=== PATIENT | male | born 1950 | race Caucasian/White ===

== ENCOUNTER 2017-08-02 03:00 | Inpatient (IN) | payer OTHER ==
[2017-08-02] MEDS ORDERED: Sodium Chloride 0.9% 10 ML Syringe FLUSH PRN ×2 (03:07→09:21)
[2017-08-02] MEDS ORDERED: Sodium Chloride 0.9% 1,000 ML IV SCH (03:15)
--- NOTE | 2017-08-02 03:23 | EDM.PDOC ---
ED HPI GENERAL MEDICAL PROBLEM - General Stated Complaint: MEDICAL VIA TRI Time Seen by Provider: 08/02/17 03:04 Source of Information: Reports: EMS, Family, RN Notes Reviewed History Limitations: Reports: Altered Mental Status, Respiratory Distress - History of Present Illness INITIAL COMMENTS - FREE TEXT/NARRATIVE: 66-year-old gentleman presents via EMS services today for increased difficulty breathing, he has a known history of chronic obstructive pulmonary disease as well as recent right hip surgery of which she uses Percocet for pain control, this gentleman is obtunded he does have brief moments of clear speech and conversation then becomes more obtunded he does complain of difficulty breathing he was given 2 mg of Narcan on seen at which time after the Narcan was provided was able to converse with EMS prior to arrival. Therefore no review of systems was obtained and the majority of this history was taken from chart review he does go [facility] will try and obtain records from there - Related Data Allergies Allergy/AdvReac Type Severity Reaction Status Date / Time morphine Allergy Unknown Unknown Verified 09/17/13 13:24 Sulfa (Sulfonamide Allergy Unknown Unknown Verified 09/17/13 13:23 Antibiotics) cholestyramine Allergy Cannot Verified 08/02/17 05:46 Remember insulin aspart [From Novolog] Allergy Cannot Verified 08/02/17 05:46 Remember niacin Allergy Cannot Verified 08/02/17 05:46 Remember rosuvastatin [From Crestor] Allergy Cannot Verified 08/02/17 05:46 Remember Home Meds: Home Meds Albuterol [IJD: Albuterol HFA] 1 puff .XX QID PRN 08/02/17 [History] Aspirin [Ecotrin] 325 mg PO DAILY 08/02/17 [History] Cholecalciferol (Vitamin D3) [Vitamin D3] 1,000 unit PO DAILY 08/02/17 [History] Cyanocobalamin (Vitamin B12) [Vitamin B12] 1,000 mcg PO DAILY 08/02/17 [History] Cyclobenzaprine HCl 5 - 10 mg PO TID PRN 08/02/17 [History] Gabapentin [Neurontin] 300 mg PO DAILY 08/02/17 [History] Gabapentin [Neurontin] 600 mg PO DAILY 08/02/17 [History] Gabapentin [Neurontin] 900 mg PO BEDTIME 08/02/17 [History] Insulin Glarg,Human.Rec.Analog [LantUS Solostar] 62 unit SUBCUT BID 08/02/17 [ History] Isosorbide Mononitrate [Imdur] 60 mg PO BID 08/02/17 [History] Levothyroxine 150 mcg PO ACBREAKFAST 08/02/17 [History] Loratadine 10 mg PO DAILY PRN 08/02/17 [History] Magnesium Oxide 250 mg PO DAILY 08/02/17 [History] Meclizine [Antivert] 25 mg PO TID PRN 08/02/17 [History] Metoprolol Succinate [Toprol XL] 100 mg PO BEDTIME 08/02/17 [History] Nitroglycerin [Nitrostat] 0.4 mg SL ASDIRECTED PRN 08/02/17 [History] Ranolazine [Ranexa] 1,000 mg PO BID 08/02/17 [History] Sennosides/Docusate Sodium [Senna-Docusate Sodium] 1 - 2 each PO BID 08/02/17 [ History] Sertraline HCl [Zoloft] 200 mg PO BID 08/02/17 [History] Vitamin B Complex [Ultra B-100 Complex] 1 each PO DAILY 08/02/17 [History] amLODIPine Besylate [Amlodipine Besylate] 5 mg PO BEDTIME 08/02/17 [History] atorvaSTATin Calcium [Atorvastatin Calcium] 40 mg PO BEDTIME 08/02/17 [History] metFORMIN [Glucophage] 1,000 mg PO BIDMEALS 08/02/17 [History] oxyCODONE 1 - 2 tab PO Q3H PRN 08/02/17 [History] traZODone HCl [Trazodone HCl] 50 mg PO BEDTIME 08/02/17 [History] Past Medical History Respiratory History: Reports: COPD Endocrine/Metabolic History: Reports: Diabetes, Type II ED ROS GENERAL - Review of Systems Review Of Systems: Unable To Obtain ED EXAM, GENERAL - Physical Exam Exam: See Below Free Text/Narrative:: General: Obtunded male GCS will vary between 6 and 13, alert HEENT: head is atraumatic normocephalic, eyes pupils equal round minimally reactive at 2 mm, sclera clear no conjunctivitis appreciated. Ears blocked by cerumen bilaterally. Nose no septal deviation, nares are clear, no blood present. Mouth mucosa is dry and pink no erythema or exudate noted in soft palate, tongue is midline uvula is midline, dentition is intact. Neck: Supple no thyromegaly no tracheal deviation. Nodes: Cervical nodes subclavicular nodes nontender no palpable lymphadenopathy noted. Lungs: Breath sounds are distant on appreciate any adventitious noises CV: Bradycardic rate and rhythm S1 and S2 appreciated no murmurs rubs or gallops noted. Abdomen: Soft, distended with generalized tenderness to palpation, no palpable masses or organomegaly appreciated, no distention no guarding bowel sounds are present,. Neuro: Cranial nerves II through XII grossly intact Skin: Warm and dry, intact Extremities: +1 edema bilaterally, pedal pulse is +2. Course - Vital Signs Last Recorded V/S: Last Vital Signs Temp 96.8 F 08/02/17 05:18 Pulse 56 L 08/02/17 05:18 Resp 26 H 08/02/17 05:18 BP 136/73 08/02/17 05:18 Pulse Ox 96 08/02/17 05:18 - Orders/Labs/Meds Orders: Active Orders 24 hr Category Date Time Status Cardiac Monitoring [RC] .As Directed Care 08/02/17 03:07 Active EKG Documentation Completion [RC] ASDIRECTED Care 08/02/17 03:09 Active Baez Catheter Insertion [Insert Urinary Catheter] [OM. Care 08/02/17 03:45 Ordered PC] Q24H Peripheral IV Care [RC] . DIRECTED Care 08/02/17 03:08 Active RT BiPAP/CPAP [RC] ASDIRECTED Care 08/02/17 03:10 Active Urinary Catheter Assessment [RC] ASDIRECTED Care 08/02/17 03:39 Active Ang Chest [CT] Stat Exams 08/02/17 05:39 Taken Chest 1V Frontal [CR] Stat Exams 08/02/17 03:09 Taken Head wo Cont [CT] Stat Exams 08/02/17 03:47 Taken Sodium Chloride 0.9% [Normal Saline] 1,000 ml Med 08/02/17 03:15 Active IV ASDIRECTED Sodium Chloride 0.9% [Saline Flush] Med 08/02/17 03:07 Active 10 ml FLUSH ASDIRECTED PRN Peripheral IV Insertion Adult [OM.PC] Stat Oth 08/02/17 03:07 Ordered EKG 12 Lead [EK] Stat Ther 08/02/17 03:09 Ordered Medication Orders Sodium Chloride (Normal Saline) 1,000 mls @ 125 mls/hr IV ASDIRECTED JAIDA Last Admin: 08/02/17 04:19 Dose: 125 mls/hr Sodium Chloride (Saline Flush) 10 ml FLUSH ASDIRECTED PRN PRN Reason: Keep Vein Open Last Admin: 08/02/17 05:24 Dose: 10 ml Labs: Laboratory Tests 08/02/17 08/02/17 08/02/17 Range/Units 03:20 03:20 03:20 WBC 11.1 H (4.5-11.0) K/uL RBC 3.53 L (4.30-5.90) M/uL Hgb 11.0 L (12.0-15.0) g/dL Hct 34.3 L (40.0-54.0) % MCV 97 (80-98) fL MCH 31 (27-31) pg MCHC 32 (32-36) % Plt Count 157 (150-400) K/uL Neut % (Auto) 68 H (36-66) % Lymph % (Auto) 20 L (24-44) % Glenn % (Auto) 10 H (2-6) % Eos % (Auto) 2 (2-4) % Baso % (Auto) 0 (0-1) % D-Dimer, Quantitative (0.0-400.0) ng/mL Puncture Site ABG pH (7.350-7.450) ABG pCO2 (35.0-42.0) mmHg ABG pO2 (75.0-100.0) mmHg ABG HCO3 (22.0-26.0) mmol/L ABG Total CO2 (23.0-27.0) mmol/L ABG O2 Saturation (95.0-98.0) % ABG O2 Content (15.0-23.0) %vol ABG Base Excess mm/L ABG Hemoglobin (13.5-18.0) g/dL ABG Oxyhemoglobin % ABG Carboxyhemoglobin (0.0-1.6) % ABG Methemoglobin % Vernon Test O2 Delivery Device Oxygen Flow Rate L Sodium 141 (140-148) mmol/L Potassium 4.1 (3.6-5.2) mmol/L Chloride 107 (100-108) mmol/L Carbon Dioxide 25 (21-32) mmol/L Anion Gap 9.2 (5.0-14.0) mmol/L BUN 21 H (7-18) mg/dL Creatinine 0.9 (0.8-1.3) mg/dL Est Cr Clr Drug Dosing 87.42 mL/min Estimated GFR (MDRD) > 60 (>60) Glucose 114 H (74-106) mg/dL Lactic Acid 1.5 (0.4-2.0) mmol/L Calcium 8.5 (8.5-10.1) mg/dL Total Bilirubin 0.6 (0.2-1.0) mg/dL AST 17 (15-37) U/L ALT 21 (12-78) U/L Alkaline Phosphatase 62 (46-116) U/L Creatine Kinase (39-308) U/L Troponin I 0.047 (0.000-0.056) ng/mL NT-Pro-B Natriuret Pep 1103 H (5-125) pg/mL Total Protein 6.5 (6.4-8.2) g/dL Albumin 3.2 L (3.4-5.0) g/dL Globulin 3.3 (2.3-3.5) g/dL Albumin/Globulin Ratio 1.0 L (1.2-2.2) Lipase 75 (73-393) U/L TSH, Ultra Sensitive (0.358-3.740) uIU/mL Urine Color Urine Appearance Urine pH (4.5-8.0) Ur Specific [place] (1.008-1.030) Urine Protein (NEGATIVE) mg/dL Urine Glucose (UA) (NEGATIVE) mg/dL Urine Ketones (NEGATIVE) mg/dL Urine Occult Blood (NEGATIVE) Urine Nitrite (NEGAITVE) Urine Bilirubin (NEGATIVE) Urine Urobilinogen (NORMAL) mg/dL Ur Leukocyte Esterase (NEGATIVE) Urine RBC (0-5) Urine WBC (0-5) Ur Epithelial Cells Amorphous Sediment Urine Bacteria Urine Mucus Salicylates (2.0-20.0) mg/dL Urine Opiates Screen (NEGATIVE) Ur Oxycodone Screen (NEGATIVE) Urine Methadone Screen (NEGATIVE) Ur Propoxyphene Screen (NEGATIVE) Acetaminophen (10.0-30.0) ug/mL Ur Barbiturates Screen (NEGATIVE) Ur Tricyclics Screen (NEGATIVE) Ur Phencyclidine Scrn (NEGATIVE) Ur Amphetamine Screen (NEGATIVE) U Methamphetamines Scrn (NEGATIVE) Urine MDMA Screen (NEGATIVE) U Benzodiazepines Scrn (NEGATIVE) U Cocaine Metab Screen (NEGATIVE) Theophylline < 2.0 L (10-20.0) ug/mL U Marijuana (THC) Screen (NEGATIVE) Ethyl Alcohol mg/dL 08/02/17 08/02/17 08/02/17 Range/Units 03:20 03:20 03:20 WBC (4.5-11.0) K/uL RBC (4.30-5.90) M/uL Hgb (12.0-15.0) g/dL Hct (40.0-54.0) % MCV (80-98) fL MCH (27-31) pg MCHC (32-36) % Plt Count (150-400) K/uL Neut % (Auto) (36-66) % Lymph % (Auto) (24-44) % Glenn % (Auto) (2-6) % Eos % (Auto) (2-4) % Baso % (Auto) (0-1) % D-Dimer, Quantitative (0.0-400.0) ng/mL Puncture Site ABG pH (7.350-7.450) ABG pCO2 (35.0-42.0) mmHg ABG pO2 (75.0-100.0) mmHg ABG HCO3 (22.0-26.0) mmol/L ABG Total CO2 (23.0-27.0) mmol/L ABG O2 Saturation (95.0-98.0) % ABG O2 Content (15.0-23.0) %vol ABG Base Excess mm/L ABG Hemoglobin (13.5-18.0) g/dL ABG Oxyhemoglobin % ABG Carboxyhemoglobin (0.0-1.6) % ABG Methemoglobin % Vernon Test O2 Delivery Device Oxygen Flow Rate L Sodium (140-148) mmol/L Potassium (3.6-5.2) mmol/L Chloride (100-108) mmol/L Carbon Dioxide (21-32) mmol/L Anion Gap (5.0-14.0) mmol/L BUN (7-18) mg/dL Creatinine (0.8-1.3) mg/dL Est Cr Clr Drug Dosing mL/min Estimated GFR (MDRD) (>60) Glucose (74-106) mg/dL Lactic Acid (0.4-2.0) mmol/L Calcium (8.5-10.1) mg/dL Total Bilirubin (0.2-1.0) mg/dL AST (15-37) U/L ALT (12-78) U/L Alkaline Phosphatase (46-116) U/L Creatine Kinase (39-308) U/L Troponin I (0.000-0.056) ng/mL NT-Pro-B Natriuret Pep (5-125) pg/mL Total Protein (6.4-8.2) g/dL Albumin (3.4-5.0) g/dL Globulin (2.3-3.5) g/dL Albumin/Globulin Ratio (1.2-2.2) Lipase (73-393) U/L TSH, Ultra Sensitive (0.358-3.740) uIU/mL Urine Color Urine Appearance Urine pH (4.5-8.0) Ur Specific [place] (1.008-1.030) Urine Protein (NEGATIVE) mg/dL Urine Glucose (UA) (NEGATIVE) mg/dL Urine Ketones (NEGATIVE) mg/dL Urine Occult Blood (NEGATIVE) Urine Nitrite (NEGAITVE) Urine Bilirubin (NEGATIVE) Urine Urobilinogen (NORMAL) mg/dL Ur Leukocyte Esterase (NEGATIVE) Urine RBC (0-5) Urine WBC (0-5) Ur Epithelial Cells Amorphous Sediment Urine Bacteria Urine Mucus Salicylates 2.9 (2.0-20.0) mg/dL Urine Opiates Screen (NEGATIVE) Ur Oxycodone Screen (NEGATIVE) Urine Methadone Screen (NEGATIVE) Ur Propoxyphene Screen (NEGATIVE) Acetaminophen 0.0 L (10.0-30.0) ug/mL Ur Barbiturates Screen (NEGATIVE) Ur Tricyclics Screen (NEGATIVE) Ur Phencyclidine Scrn (NEGATIVE) Ur Amphetamine Screen (NEGATIVE) U Methamphetamines Scrn (NEGATIVE) Urine MDMA Screen (NEGATIVE) U Benzodiazepines Scrn (NEGATIVE) U Cocaine Metab Screen (NEGATIVE) Theophylline (10-20.0) ug/mL U Marijuana (THC) Screen (NEGATIVE) Ethyl Alcohol < 3 mg/dL 08/02/17 08/02/17 08/02/17 Range/Units 03:20 03:20 03:23 WBC (4.5-11.0) K/uL RBC (4.30-5.90) M/uL Hgb (12.0-15.0) g/dL Hct (40.0-54.0) % MCV (80-98) fL MCH (27-31) pg MCHC (32-36) % Plt Count (150-400) K/uL Neut % (Auto) (36-66) % Lymph % (Auto) (24-44) % Glenn % (Auto) (2-6) % Eos % (Auto) (2-4) % Baso % (Auto) (0-1) % D-Dimer, Quantitative (0.0-400.0) ng/mL Puncture Site R radial ABG pH 7.392 (7.350-7.450) ABG pCO2 40.8 (35.0-42.0) mmHg ABG pO2 54.4 L (75.0-100.0) mmHg ABG HCO3 24.3 (22.0-26.0) mmol/L ABG Total CO2 22.3 L (23.0-27.0) mmol/L ABG O2 Saturation 87.3 L (95.0-98.0) % ABG O2 Content 13.3 L (15.0-23.0) %vol ABG Base Excess -0.1 mm/L ABG Hemoglobin 11.2 L (13.5-18.0) g/dL ABG Oxyhemoglobin 84.2 % ABG Carboxyhemoglobin 3.0 H (0.0-1.6) % ABG Methemoglobin 0.6 % Vernon Test Ok O2 Delivery Device Nasal cannula Oxygen Flow Rate 2 L Sodium (140-148) mmol/L Potassium (3.6-5.2) mmol/L Chloride (100-108) mmol/L Carbon Dioxide (21-32) mmol/L Anion Gap (5.0-14.0) mmol/L BUN (7-18) mg/dL Creatinine (0.8-1.3) mg/dL Est Cr Clr Drug Dosing mL/min Estimated GFR (MDRD) (>60) Glucose (74-106) mg/dL Lactic Acid (0.4-2.0) mmol/L Calcium (8.5-10.1) mg/dL Total Bilirubin (0.2-1.0) mg/dL AST (15-37) U/L ALT (12-78) U/L Alkaline Phosphatase (46-116) U/L Creatine Kinase 52 (39-308) U/L Troponin I (0.000-0.056) ng/mL NT-Pro-B Natriuret Pep (5-125) pg/mL Total Protein (6.4-8.2) g/dL Albumin (3.4-5.0) g/dL Globulin (2.3-3.5) g/dL Albumin/Globulin Ratio (1.2-2.2) Lipase (73-393) U/L TSH, Ultra Sensitive 4.739 H (0.358-3.740) uIU/mL Urine Color Urine Appearance Urine pH (4.5-8.0) Ur Specific [place] (1.008-1.030) Urine Protein (NEGATIVE) mg/dL Urine Glucose (UA) (NEGATIVE) mg/dL Urine Ketones (NEGATIVE) mg/dL Urine Occult Blood (NEGATIVE) Urine Nitrite (NEGAITVE) Urine Bilirubin (NEGATIVE) Urine Urobilinogen (NORMAL) mg/dL Ur Leukocyte Esterase (NEGATIVE) Urine RBC (0-5) Urine WBC (0-5) Ur Epithelial Cells Amorphous Sediment Urine Bacteria Urine Mucus Salicylates (2.0-20.0) mg/dL Urine Opiates Screen (NEGATIVE) Ur Oxycodone Screen (NEGATIVE) Urine Methadone Screen (NEGATIVE) Ur Propoxyphene Screen (NEGATIVE) Acetaminophen (10.0-30.0) ug/mL Ur Barbiturates Screen (NEGATIVE) Ur Tricyclics Screen (NEGATIVE) Ur Phencyclidine Scrn (NEGATIVE) Ur Amphetamine Screen (NEGATIVE) U Methamphetamines Scrn (NEGATIVE) Urine MDMA Screen (NEGATIVE) U Benzodiazepines Scrn (NEGATIVE) U Cocaine Metab Screen (NEGATIVE) Theophylline (10-20.0) ug/mL U Marijuana (THC) Screen (NEGATIVE) Ethyl Alcohol mg/dL 08/02/17 08/02/17 08/02/17 Range/Units 03:48 03:49 05:00 WBC (4.5-11.0) K/uL RBC (4.30-5.90) M/uL Hgb (12.0-15.0) g/dL Hct (40.0-54.0) % MCV (80-98) fL MCH (27-31) pg MCHC (32-36) % Plt Count (150-400) K/uL Neut % (Auto) (36-66) % Lymph % (Auto) (24-44) % Glenn % (Auto) (2-6) % Eos % (Auto) (2-4) % Baso % (Auto) (0-1) % D-Dimer, Quantitative (0.0-400.0) ng/mL Puncture Site R radial ABG pH 7.348 L (7.350-7.450) ABG pCO2 44.5 H (35.0-42.0) mmHg ABG pO2 72.0 L (75.0-100.0) mmHg ABG HCO3 23.8 (22.0-26.0) mmol/L ABG Total CO2 22.0 L (23.0-27.0) mmol/L ABG O2 Saturation 93.7 L (95.0-98.0) % ABG O2 Content 14.3 L (15.0-23.0) %vol ABG Base Excess -1.4 mm/L ABG Hemoglobin 11.2 L (13.5-18.0) g/dL ABG Oxyhemoglobin 90.8 % ABG Carboxyhemoglobin 2.4 H (0.0-1.6) % ABG Methemoglobin 0.7 % Vernon Test Ok O2 Delivery Device Bipap Oxygen Flow Rate L Sodium (140-148) mmol/L Potassium (3.6-5.2) mmol/L Chloride (100-108) mmol/L Carbon Dioxide (21-32) mmol/L Anion Gap (5.0-14.0) mmol/L BUN (7-18) mg/dL Creatinine (0.8-1.3) mg/dL Est Cr Clr Drug Dosing mL/min Estimated GFR (MDRD) (>60) Glucose (74-106) mg/dL Lactic Acid (0.4-2.0) mmol/L Calcium (8.5-10.1) mg/dL Total Bilirubin (0.2-1.0) mg/dL AST (15-37) U/L ALT (12-78) U/L Alkaline Phosphatase (46-116) U/L Creatine Kinase (39-308) U/L Troponin I (0.000-0.056) ng/mL NT-Pro-B Natriuret Pep (5-125) pg/mL Total Protein (6.4-8.2) g/dL Albumin (3.4-5.0) g/dL Globulin (2.3-3.5) g/dL Albumin/Globulin Ratio (1.2-2.2) Lipase (73-393) U/L TSH, Ultra Sensitive (0.358-3.740) uIU/mL Urine Color Yellow Urine Appearance Clear Urine pH 5.0 (4.5-8.0) Ur Specific [place] 1.025 (1.008-1.030) Urine Protein Negative (NEGATIVE) mg/dL Urine Glucose (UA) 250 H (NEGATIVE) mg/dL Urine Ketones Negative (NEGATIVE) mg/dL Urine Occult Blood Negative (NEGATIVE) Urine Nitrite Negative (NEGAITVE) Urine Bilirubin Negative (NEGATIVE) Urine Urobilinogen Normal (NORMAL) mg/dL Ur Leukocyte Esterase Negative (NEGATIVE) Urine RBC 0-5 (0-5) Urine WBC 0-5 (0-5) Ur Epithelial Cells Rare Amorphous Sediment Few Urine Bacteria Few Urine Mucus Not seen Salicylates (2.0-20.0) mg/dL Urine Opiates Screen Negative (NEGATIVE) Ur Oxycodone Screen Positive H (NEGATIVE) Urine Methadone Screen Negative (NEGATIVE) Ur Propoxyphene Screen Negative (NEGATIVE) Acetaminophen (10.0-30.0) ug/mL Ur Barbiturates Screen Negative (NEGATIVE) Ur Tricyclics Screen Negative (NEGATIVE) Ur Phencyclidine Scrn Negative (NEGATIVE) Ur Amphetamine Screen Negative (NEGATIVE) U Methamphetamines Scrn Negative (NEGATIVE) Urine MDMA Screen Negative (NEGATIVE) U Benzodiazepines Scrn Negative (NEGATIVE) U Cocaine Metab Screen Negative (NEGATIVE) Theophylline (10-20.0) ug/mL U Marijuana (THC) Screen Negative (NEGATIVE) Ethyl Alcohol mg/dL 08/02/17 Range/Units 05:05 WBC (4.5-11.0) K/uL RBC (4.30-5.90) M/uL Hgb (12.0-15.0) g/dL Hct (40.0-54.0) % MCV (80-98) fL MCH (27-31) pg MCHC (32-36) % Plt Count (150-400) K/uL Neut % (Auto) (36-66) % Lymph % (Auto) (24-44) % Glenn % (Auto) (2-6) % Eos % (Auto) (2-4) % Baso % (Auto) (0-1) % D-Dimer, Quantitative 3540 H (0.0-400.0) ng/mL Puncture Site ABG pH (7.350-7.450) ABG pCO2 (35.0-42.0) mmHg ABG pO2 (75.0-100.0) mmHg ABG HCO3 (22.0-26.0) mmol/L ABG Total CO2 (23.0-27.0) mmol/L ABG O2 Saturation (95.0-98.0) % ABG O2 Content (15.0-23.0) %vol ABG Base Excess mm/L ABG Hemoglobin (13.5-18.0) g/dL ABG Oxyhemoglobin % ABG Carboxyhemoglobin (0.0-1.6) % ABG Methemoglobin % Vernon Test O2 Delivery Device Oxygen Flow Rate L Sodium (140-148) mmol/L Potassium (3.6-5.2) mmol/L Chloride (100-108) mmol/L Carbon Dioxide (21-32) mmol/L Anion Gap (5.0-14.0) mmol/L BUN (7-18) mg/dL Creatinine (0.8-1.3) mg/dL Est Cr Clr Drug Dosing mL/min Estimated GFR (MDRD) (>60) Glucose (74-106) mg/dL Lactic Acid (0.4-2.0) mmol/L Calcium (8.5-10.1) mg/dL Total Bilirubin (0.2-1.0) mg/dL AST (15-37) U/L ALT (12-78) U/L Alkaline Phosphatase (46-116) U/L Creatine Kinase (39-308) U/L Troponin I (0.000-0.056) ng/mL NT-Pro-B Natriuret Pep (5-125) pg/mL Total Protein (6.4-8.2) g/dL Albumin (3.4-5.0) g/dL Globulin (2.3-3.5) g/dL Albumin/Globulin Ratio (1.2-2.2) Lipase (73-393) U/L TSH, Ultra Sensitive (0.358-3.740) uIU/mL Urine Color Urine Appearance Urine pH (4.5-8.0) Ur Specific [place] (1.008-1.030) Urine Protein (NEGATIVE) mg/dL Urine Glucose (UA) (NEGATIVE) mg/dL Urine Ketones (NEGATIVE) mg/dL Urine Occult Blood (NEGATIVE) Urine Nitrite (NEGAITVE) Urine Bilirubin (NEGATIVE) Urine Urobilinogen (NORMAL) mg/dL Ur Leukocyte Esterase (NEGATIVE) Urine RBC (0-5) Urine WBC (0-5) Ur Epithelial Cells Amorphous Sediment Urine Bacteria Urine Mucus Salicylates (2.0-20.0) mg/dL Urine Opiates Screen (NEGATIVE) Ur Oxycodone Screen (NEGATIVE) Urine Methadone Screen (NEGATIVE) Ur Propoxyphene Screen (NEGATIVE) Acetaminophen (10.0-30.0) ug/mL Ur Barbiturates Screen (NEGATIVE) Ur Tricyclics Screen (NEGATIVE) Ur Phencyclidine Scrn (NEGATIVE) Ur Amphetamine Screen (NEGATIVE) U Methamphetamines Scrn (NEGATIVE) Urine MDMA Screen (NEGATIVE) U Benzodiazepines Scrn (NEGATIVE) U Cocaine Metab Screen (NEGATIVE) Theophylline (10-20.0) ug/mL U Marijuana (THC) Screen (NEGATIVE) Ethyl Alcohol mg/dL Meds: Medications Generic Name Dose Route Start Last Admin Trade Name Freq PRN Reason Stop Dose Admin Sodium Chloride 1,000 mls @ 125 mls/hr 08/02/17 03:15 08/02/17 04:19 Normal Saline IV 125 mls/hr ASDIRECTED JAIDA Administration Sodium Chloride 10 ml 08/02/17 03:07 08/02/17 05:24 Saline Flush FLUSH 10 ml ASDIRECTED PRN Administration Keep Vein Open Discontinued Medications Generic Name Dose Route Start Last Admin Trade Name Freq PRN Reason Stop Dose Admin Sodium Chloride 100 mls @ 4 mls/sec 08/02/17 05:52 Normal Saline IV 08/02/17 05:53 ASDIRECTED STA Iopamidol 100 ml 08/02/17 05:52 08/02/17 06:21 Isovue-370 (76%) IV 08/02/17 05:53 100 ml . DIRECTED STA Administration Lidocaine HCl 10 ml 08/02/17 03:39 08/02/17 04:18 Xylocaine 2% Jelly MUCMEM 08/02/17 03:40 10 ml ONETIME ONE Administration Lidocaine HCl Confirm 08/02/17 03:39 08/02/17 04:18 Xylocaine 2% Jelly Administered 08/02/17 03:40 Not Given Dose 10 ml .ROUTE .STK-MED ONE Departure - Departure Time of Disposition: 06:52 Disposition: Admitted As Inpatient 65 Condition: Fair (How far) Clinical Impression: Respiratory distress - Discharge Information Referrals: PCP,None [Primary Care Provider] - - My Orders Last 24 Hours: My Active Orders 08/02/17 03:07 Cardiac Monitoring [RC] .As Directed Sodium Chloride 0.9% [Saline Flush] 10 ml FLUSH ASDIRECTED PRN Peripheral IV Insertion Adult [OM.PC] Stat 08/02/17 03:08 Peripheral IV Care [RC] . DIRECTED 08/02/17 03:09 EKG Documentation Completion [RC] ASDIRECTED Chest 1V Frontal [CR] Stat EKG 12 Lead [EK] Stat 08/02/17 03:10 RT BiPAP/CPAP [RC] ASDIRECTED 08/02/17 03:15 Sodium Chloride 0.9% [Normal Saline] 1,000 ml IV ASDIRECTED 08/02/17 03:39 Urinary Catheter Assessment [RC] ASDIRECTED 08/02/17 03:45 Baez Catheter Insertion [Insert Urinary Catheter] [OM.PC] Q24H 08/02/17 03:47 Head wo Cont [CT] Stat 08/02/17 05:39 Ang Chest [CT] Stat - Assessment/Plan Last 24 Hours: My Active Orders 08/02/17 03:07 Cardiac Monitoring [RC] .As Directed Sodium Chloride 0.9% [Saline Flush] 10 ml FLUSH ASDIRECTED PRN Peripheral IV Insertion Adult [OM.PC] Stat 08/02/17 03:08 Peripheral IV Care [RC] . DIRECTED 08/02/17 03:09 EKG Documentation Completion [RC] ASDIRECTED Chest 1V Frontal [CR] Stat EKG 12 Lead [EK] Stat 08/02/17 03:10 RT BiPAP/CPAP [RC] ASDIRECTED 08/02/17 03:15 Sodium Chloride 0.9% [Normal Saline] 1,000 ml IV ASDIRECTED 08/02/17 03:39 Urinary Catheter Assessment [RC] ASDIRECTED 08/02/17 03:45 Baez Catheter Insertion [Insert Urinary Catheter] [OM.PC] Q24H 08/02/17 03:47 Head wo Cont [CT] Stat 08/02/17 05:39 Ang Chest [CT] Stat Plan: Assessment Acuity = acute Site and laterality = respiratory distress with hypoxia complicated in a patient with known history of COPD, diabetes mellitus type 2 and coronary artery disease Etiology = suspected congestive heart failure Manifestations = hypoxic with obtunded mentation Location of injury = Home Lab values = hemoglobin low 11.0 consistent with normochromic anemia d-dimer elevated at 3540 ABG pH 7.39 PCO2 40.8 and PO2 54.4 bicarbonate 24 BNP elevated at 10/17/02 consistent with mild fluid overload TSH elevated at 4.7 for of unknown significance urine drug screen positive for opiates head T CT scan negative for any acute intracranial abnormality EKG demonstrates sinus bradycardia CT scan chest is negative for any pulmonary embolism consistent with pulmonary edema Plan Called and discussed case with hospitalist business controller he agreed to, to the emergency department evaluate the patient for admission Patient was in agreement with the plan all questions were answered, they were instructed to return to the emergency department or call for worsening symptoms. This note was dictated using [employer] voice recognition software please call with any questions.
[2017-08-02] MEDS ORDERED: Lidocaine 2% Jelly 10 ML Urojet MUCMEM ONE (03:39)
[2017-08-02] MEDS ORDERED: Lidocaine 2% Jelly 10 ML Urojet ONE (03:39)
[2017-08-02] MEDS ORDERED: Sodium Chloride 0.9% 100 ML IV STA (05:52)
[2017-08-02] MEDS ORDERED: Iopamidol 755 Mg/ML 100 ML Bottle IV STA (05:52)
[2017-08-02] MEDS ORDERED: Furosemide 40 MG/4 ML VIAL IVPUSH ONE (06:51)
[2017-08-02] MEDS ORDERED: Glucagon,Human Recombinant 1 MG Vial IM PRN (08:46)
[2017-08-02] MEDS ORDERED: 50% Dextrose in Water 50 ML Syringe IVPUSH PRN (08:46)
[2017-08-02] MEDS ORDERED: Glucose Gel 15 GM in 37.5 GM Tube PO PRN ×2 (08:46→09:21)
--- NOTE | 2017-08-02 09:03 | PCM.HP ---
H&P History of Present Illness - General Date of Service: 08/02/17 Admit Problem/Dx: Admission Diagnosis/Problem Admission Diagnosis/Problem CHF, Congestive heart failure Source of Information: Patient, Provider, RN Notes Reviewed History Limitations: Reports: No Limitations - History of Present Illness Initial Comments - Free Text/Narative: Mr. Macias is a 66-year-old gentleman who is admitted through the emergency department with a history of shortness of breath and hypoxia secondary to pulmonary edema. He is status post left total hip arthroplasty done approximately 2 weeks ago. Over the last 6 days prior to admission he has developed progressive increase in shortness of breath associated with mild peripheral edema and orthopnea. Experience of period of unresponsiveness in the ambulance was called to bring him into the emergency department. On initial assessment was noted to be hypoxic with oxygen saturations in the mid 80s. He does have a known history of severe coronary artery disease as well as COPD and has a [id number] smoking history. Chest x-ray was unremarkable and his white blood cell count was only modestly elevated. He denies any recent history of fever, chills, or productive cough. CT angiogram of the chest was obtained to rule out pulmonary embolism, there was no pulmonary embolism but the CT scan did document pulmonary edema. He is been placed on noninvasive positive pressure ventilation with good improvement in his oxygen saturations and has received 80 mg of IV furosemide. - Related Data Allergies/Adverse Reactions: Allergies Allergy/AdvReac Type Severity Reaction Status Date / Time morphine Allergy Unknown Unknown Verified 09/17/13 13:24 Sulfa (Sulfonamide Allergy Unknown Unknown Verified 09/17/13 13:23 Antibiotics) cholestyramine Allergy Cannot Verified 08/02/17 05:46 Remember insulin aspart [From Novolog] Allergy Cannot Verified 08/02/17 05:46 Remember niacin Allergy Cannot Verified 08/02/17 05:46 Remember rosuvastatin [From Crestor] Allergy Cannot Verified 08/02/17 05:46 Remember Home Medications: Home Meds Albuterol [IJD: Albuterol HFA] 1 puff .XX QID PRN 08/02/17 [History] Aspirin [Ecotrin] 325 mg PO DAILY 08/02/17 [History] Cholecalciferol (Vitamin D3) [Vitamin D3] 1,000 unit PO DAILY 08/02/17 [History] Cyanocobalamin (Vitamin B12) [Vitamin B12] 1,000 mcg PO DAILY 08/02/17 [History] Cyclobenzaprine HCl 5 - 10 mg PO TID PRN 08/02/17 [History] Gabapentin [Neurontin] 300 mg PO DAILY 08/02/17 [History] Gabapentin [Neurontin] 600 mg PO DAILY 08/02/17 [History] Gabapentin [Neurontin] 900 mg PO BEDTIME 08/02/17 [History] Insulin Glarg,Human.Rec.Analog [LantUS Solostar] 62 unit SUBCUT BID 08/02/17 [ History] Isosorbide Mononitrate [Imdur] 60 mg PO BID 08/02/17 [History] Levothyroxine 150 mcg PO ACBREAKFAST 08/02/17 [History] Loratadine 10 mg PO DAILY PRN 08/02/17 [History] Magnesium Oxide 250 mg PO DAILY 08/02/17 [History] Meclizine [Antivert] 25 mg PO TID PRN 08/02/17 [History] Metoprolol Succinate [Toprol XL] 100 mg PO BEDTIME 08/02/17 [History] Nitroglycerin [Nitrostat] 0.4 mg SL ASDIRECTED PRN 08/02/17 [History] Ranolazine [Ranexa] 1,000 mg PO BID 08/02/17 [History] Sennosides/Docusate Sodium [Senna-Docusate Sodium] 1 - 2 each PO BID 08/02/17 [ History] Sertraline HCl [Zoloft] 200 mg PO BID 08/02/17 [History] Vitamin B Complex [Ultra B-100 Complex] 1 each PO DAILY 08/02/17 [History] amLODIPine Besylate [Amlodipine Besylate] 5 mg PO BEDTIME 08/02/17 [History] atorvaSTATin Calcium [Atorvastatin Calcium] 40 mg PO BEDTIME 08/02/17 [History] metFORMIN [Glucophage] 1,000 mg PO BIDMEALS 08/02/17 [History] oxyCODONE 1 - 2 tab PO Q3H PRN 08/02/17 [History] traZODone HCl [Trazodone HCl] 50 mg PO BEDTIME 08/02/17 [History] Past Medical History Cardiovascular History: Reports: Angina, Bypass, CAD, Hypertension, MT, Pulmonary Hypertension Respiratory History: Reports: COPD Other Respiratory History: pulmonary nodule Gastrointestinal History: Reports: GERD Musculoskeletal History: Reports: Osteoarthritis Neurological History: Reports: Neuropathy, Diabetic, Vertigo, Other (See Below) Other Neuro History: spinal stenosis Psychiatric History: Reports: Depression Endocrine/Metabolic History: Reports: Diabetes, Type II - Past Surgical History Cardiovascular Surgical History: Reports: Coronary Artery Bypass Musculoskeletal Surgical History: Reports: Hip Replacement Other Musculoskeletal Surgeries/Procedures:: 2 weeks ago L hip Social & Family History - Tobacco Use Smoking Status *Q: Current Every Day Smoker Years of Tobacco use: 50 Packs/Tins Daily: 0.5 - Caffeine Use Caffeine Use: Reports: Soda - Recreational Drug Use Recreational Drug Use: No H&P Review of Systems - Review of Systems: Review Of Systems: See Below General: Reports: Weakness. Denies: Fever, Chills, Diaphoresis HEENT: Reports: No Symptoms Pulmonary: Reports: Shortness of Breath. Denies: Wheezing, Pleuritic Chest Pain , Cough, Sputum, Hemoptysis Cardiovascular: Reports: Dyspnea on Exertion, Orthopnea, Edema, Syncope. Denies : Chest Pain, Palpitations, PND, Lightheadedness Gastrointestinal: Reports: No Symptoms Genitourinary: Reports: No Symptoms Musculoskeletal: Reports: Joint Pain (Left hip) Skin: Reports: No Symptoms Psychiatric: Reports: No Symptoms Neurological: Reports: No Symptoms Hematologic/Lymphatic: Reports: No Symptoms Immunologic: Reports: No Symptoms Exam - Exam Exam: See Below - Vital Signs Vital Signs: Last Vital Signs Temp 96.8 F 08/02/17 05:18 Pulse 51 L 08/02/17 06:55 Resp 21 H 08/02/17 06:55 BP 123/71 08/02/17 07:00 Pulse Ox 91 L 08/02/17 06:55 Weight: 235 lb - Exam Quality Assessment: Supplemental Oxygen, Urinary Catheter, DVT Prophylaxis General: Alert, Oriented, Cooperative, Mild Distress HEENT: Conjunctiva Clear, Hearing Intact, Mucosa Moist & [place], Normal Nasal Septum, Posterior Pharynx Clear, Pupils Equal Neck: Supple, Trachea Midline, +2 Carotid Pulse wo Bruit Lungs: Decreased Breath Sounds, Rales, Wheezing. No: Crackles, Rhonchi, Rub, Stridor Cardiovascular: Regular Rate, Regular Rhythm, Normal S1, Normal S2. No: Systolic Murmur, Diastolic Murmur GI/Abdominal Exam: Normal Bowel Sounds, Soft, Non-Tender, No Organomegaly, No Distention Back Exam: Normal Inspection, Full Range of Motion Extremities: Normal Range of Motion, Non-Tender, Pedal Edema Skin: Warm, Dry, Intact Neurological: Cranial Nerves Intact, Strength Equal Bilateral, Normal Speech, Normal Tone, Sensation Intact. No: Focal Deficit Neuro Extensive - Mental Status: Alert, Oriented x3, Normal Mood/Affect, Normal Cognition, Memory Intact - Patient Data Lab Results Last 24 hrs: Laboratory Results - last 24 hr 08/02/17 08/02/17 08/02/17 Range/Units 03:20 03:20 03:20 WBC 11.1 H (4.5-11.0) K/uL RBC 3.53 L (4.30-5.90) M/uL Hgb 11.0 L (12.0-15.0) g/dL Hct 34.3 L (40.0-54.0) % MCV 97 (80-98) fL MCH 31 (27-31) pg MCHC 32 (32-36) % Plt Count 157 (150-400) K/uL Neut % (Auto) 68 H (36-66) % Lymph % (Auto) 20 L (24-44) % [place] % (Auto) 10 H (2-6) % Eos % (Auto) 2 (2-4) % Baso % (Auto) 0 (0-1) % D-Dimer, Quantitative (0.0-400.0) ng/mL Puncture Site ABG pH (7.350-7.450) ABG pCO2 (35.0-42.0) mmHg ABG pO2 (75.0-100.0) mmHg ABG HCO3 (22.0-26.0) mmol/L ABG Total CO2 (23.0-27.0) mmol/L ABG O2 Saturation (95.0-98.0) % ABG O2 Content (15.0-23.0) %vol ABG Base Excess mm/L ABG Hemoglobin (13.5-18.0) g/dL ABG Oxyhemoglobin % ABG Carboxyhemoglobin (0.0-1.6) % ABG Methemoglobin % Vernon Test O2 Delivery Device Oxygen Flow Rate L Sodium 141 (140-148) mmol/L Potassium 4.1 (3.6-5.2) mmol/L Chloride 107 (100-108) mmol/L Carbon Dioxide 25 (21-32) mmol/L Anion Gap 9.2 (5.0-14.0) mmol/L BUN 21 H (7-18) mg/dL Creatinine 0.9 (0.8-1.3) mg/dL Est Cr Clr Drug Dosing 87.42 mL/min Estimated GFR (MDRD) > 60 (>60) Glucose 114 H (74-106) mg/dL Lactic Acid 1.5 (0.4-2.0) mmol/L Calcium 8.5 (8.5-10.1) mg/dL Total Bilirubin 0.6 (0.2-1.0) mg/dL AST 17 (15-37) U/L ALT 21 (12-78) U/L Alkaline Phosphatase 62 (46-116) U/L Creatine Kinase (39-308) U/L Troponin I 0.047 (0.000-0.056) ng/mL NT-Pro-B Natriuret Pep 1103 H (5-125) pg/mL Total Protein 6.5 (6.4-8.2) g/dL Albumin 3.2 L (3.4-5.0) g/dL Globulin 3.3 (2.3-3.5) g/dL Albumin/Globulin Ratio 1.0 L (1.2-2.2) Lipase 75 (73-393) U/L TSH, Ultra Sensitive (0.358-3.740) uIU/mL Urine Color Urine Appearance Urine pH (4.5-8.0) Ur Specific [place] (1.008-1.030) Urine Protein (NEGATIVE) mg/dL Urine Glucose (UA) (NEGATIVE) mg/dL Urine Ketones (NEGATIVE) mg/dL Urine Occult Blood (NEGATIVE) Urine Nitrite (NEGAITVE) Urine Bilirubin (NEGATIVE) Urine Urobilinogen (NORMAL) mg/dL Ur Leukocyte Esterase (NEGATIVE) Urine RBC (0-5) Urine WBC (0-5) Ur Epithelial Cells Amorphous Sediment Urine Bacteria Urine Mucus Salicylates (2.0-20.0) mg/dL Urine Opiates Screen (NEGATIVE) Ur Oxycodone Screen (NEGATIVE) Urine Methadone Screen (NEGATIVE) Ur Propoxyphene Screen (NEGATIVE) Acetaminophen (10.0-30.0) ug/mL Ur Barbiturates Screen (NEGATIVE) Ur Tricyclics Screen (NEGATIVE) Ur Phencyclidine Scrn (NEGATIVE) Ur Amphetamine Screen (NEGATIVE) U Methamphetamines Scrn (NEGATIVE) Urine MDMA Screen (NEGATIVE) U Benzodiazepines Scrn (NEGATIVE) U Cocaine Metab Screen (NEGATIVE) Theophylline < 2.0 L (10-20.0) ug/mL U Marijuana (THC) Screen (NEGATIVE) Ethyl Alcohol mg/dL 08/02/17 08/02/17 08/02/17 Range/Units 03:20 03:20 03:20 WBC (4.5-11.0) K/uL RBC (4.30-5.90) M/uL Hgb (12.0-15.0) g/dL Hct (40.0-54.0) % MCV (80-98) fL MCH (27-31) pg MCHC (32-36) % Plt Count (150-400) K/uL Neut % (Auto) (36-66) % Lymph % (Auto) (24-44) % [place] % (Auto) (2-6) % Eos % (Auto) (2-4) % Baso % (Auto) (0-1) % D-Dimer, Quantitative (0.0-400.0) ng/mL Puncture Site ABG pH (7.350-7.450) ABG pCO2 (35.0-42.0) mmHg ABG pO2 (75.0-100.0) mmHg ABG HCO3 (22.0-26.0) mmol/L ABG Total CO2 (23.0-27.0) mmol/L ABG O2 Saturation (95.0-98.0) % ABG O2 Content (15.0-23.0) %vol ABG Base Excess mm/L ABG Hemoglobin (13.5-18.0) g/dL ABG Oxyhemoglobin % ABG Carboxyhemoglobin (0.0-1.6) % ABG Methemoglobin % Vernon Test O2 Delivery Device Oxygen Flow Rate L Sodium (140-148) mmol/L Potassium (3.6-5.2) mmol/L Chloride (100-108) mmol/L Carbon Dioxide (21-32) mmol/L Anion Gap (5.0-14.0) mmol/L BUN (7-18) mg/dL Creatinine (0.8-1.3) mg/dL Est Cr Clr Drug Dosing mL/min Estimated GFR (MDRD) (>60) Glucose (74-106) mg/dL Lactic Acid (0.4-2.0) mmol/L Calcium (8.5-10.1) mg/dL Total Bilirubin (0.2-1.0) mg/dL AST (15-37) U/L ALT (12-78) U/L Alkaline Phosphatase (46-116) U/L Creatine Kinase (39-308) U/L Troponin I (0.000-0.056) ng/mL NT-Pro-B Natriuret Pep (5-125) pg/mL Total Protein (6.4-8.2) g/dL Albumin (3.4-5.0) g/dL Globulin (2.3-3.5) g/dL Albumin/Globulin Ratio (1.2-2.2) Lipase (73-393) U/L TSH, Ultra Sensitive (0.358-3.740) uIU/mL Urine Color Urine Appearance Urine pH (4.5-8.0) Ur Specific [place] (1.008-1.030) Urine Protein (NEGATIVE) mg/dL Urine Glucose (UA) (NEGATIVE) mg/dL Urine Ketones (NEGATIVE) mg/dL Urine Occult Blood (NEGATIVE) Urine Nitrite (NEGAITVE) Urine Bilirubin (NEGATIVE) Urine Urobilinogen (NORMAL) mg/dL Ur Leukocyte Esterase (NEGATIVE) Urine RBC (0-5) Urine WBC (0-5) Ur Epithelial Cells Amorphous Sediment Urine Bacteria Urine Mucus Salicylates 2.9 (2.0-20.0) mg/dL Urine Opiates Screen (NEGATIVE) Ur Oxycodone Screen (NEGATIVE) Urine Methadone Screen (NEGATIVE) Ur Propoxyphene Screen (NEGATIVE) Acetaminophen 0.0 L (10.0-30.0) ug/mL Ur Barbiturates Screen (NEGATIVE) Ur Tricyclics Screen (NEGATIVE) Ur Phencyclidine Scrn (NEGATIVE) Ur Amphetamine Screen (NEGATIVE) U Methamphetamines Scrn (NEGATIVE) Urine MDMA Screen (NEGATIVE) U Benzodiazepines Scrn (NEGATIVE) U Cocaine Metab Screen (NEGATIVE) Theophylline (10-20.0) ug/mL U Marijuana (THC) Screen (NEGATIVE) Ethyl Alcohol < 3 mg/dL 08/02/17 08/02/17 08/02/17 Range/Units 03:20 03:20 03:23 WBC (4.5-11.0) K/uL RBC (4.30-5.90) M/uL Hgb (12.0-15.0) g/dL Hct (40.0-54.0) % MCV (80-98) fL MCH (27-31) pg MCHC (32-36) % Plt Count (150-400) K/uL Neut % (Auto) (36-66) % Lymph % (Auto) (24-44) % [place] % (Auto) (2-6) % Eos % (Auto) (2-4) % Baso % (Auto) (0-1) % D-Dimer, Quantitative (0.0-400.0) ng/mL Puncture Site R radial ABG pH 7.392 (7.350-7.450) ABG pCO2 40.8 (35.0-42.0) mmHg ABG pO2 54.4 L (75.0-100.0) mmHg ABG HCO3 24.3 (22.0-26.0) mmol/L ABG Total CO2 22.3 L (23.0-27.0) mmol/L ABG O2 Saturation 87.3 L (95.0-98.0) % ABG O2 Content 13.3 L (15.0-23.0) %vol ABG Base Excess -0.1 mm/L ABG Hemoglobin 11.2 L (13.5-18.0) g/dL ABG Oxyhemoglobin 84.2 % ABG Carboxyhemoglobin 3.0 H (0.0-1.6) % ABG Methemoglobin 0.6 % Vernon Test Ok O2 Delivery Device Nasal cannula Oxygen Flow Rate 2 L Sodium (140-148) mmol/L Potassium (3.6-5.2) mmol/L Chloride (100-108) mmol/L Carbon Dioxide (21-32) mmol/L Anion Gap (5.0-14.0) mmol/L BUN (7-18) mg/dL Creatinine (0.8-1.3) mg/dL Est Cr Clr Drug Dosing mL/min Estimated GFR (MDRD) (>60) Glucose (74-106) mg/dL Lactic Acid (0.4-2.0) mmol/L Calcium (8.5-10.1) mg/dL Total Bilirubin (0.2-1.0) mg/dL AST (15-37) U/L ALT (12-78) U/L Alkaline Phosphatase (46-116) U/L Creatine Kinase 52 (39-308) U/L Troponin I (0.000-0.056) ng/mL NT-Pro-B Natriuret Pep (5-125) pg/mL Total Protein (6.4-8.2) g/dL Albumin (3.4-5.0) g/dL Globulin (2.3-3.5) g/dL Albumin/Globulin Ratio (1.2-2.2) Lipase (73-393) U/L TSH, Ultra Sensitive 4.739 H (0.358-3.740) uIU/mL Urine Color Urine Appearance Urine pH (4.5-8.0) Ur Specific [place] (1.008-1.030) Urine Protein (NEGATIVE) mg/dL Urine Glucose (UA) (NEGATIVE) mg/dL Urine Ketones (NEGATIVE) mg/dL Urine Occult Blood (NEGATIVE) Urine Nitrite (NEGAITVE) Urine Bilirubin (NEGATIVE) Urine Urobilinogen (NORMAL) mg/dL Ur Leukocyte Esterase (NEGATIVE) Urine RBC (0-5) Urine WBC (0-5) Ur Epithelial Cells Amorphous Sediment Urine Bacteria Urine Mucus Salicylates (2.0-20.0) mg/dL Urine Opiates Screen (NEGATIVE) Ur Oxycodone Screen (NEGATIVE) Urine Methadone Screen (NEGATIVE) Ur Propoxyphene Screen (NEGATIVE) Acetaminophen (10.0-30.0) ug/mL Ur Barbiturates Screen (NEGATIVE) Ur Tricyclics Screen (NEGATIVE) Ur Phencyclidine Scrn (NEGATIVE) Ur Amphetamine Screen (NEGATIVE) U Methamphetamines Scrn (NEGATIVE) Urine MDMA Screen (NEGATIVE) U Benzodiazepines Scrn (NEGATIVE) U Cocaine Metab Screen (NEGATIVE) Theophylline (10-20.0) ug/mL U Marijuana (THC) Screen (NEGATIVE) Ethyl Alcohol mg/dL 08/02/17 08/02/17 08/02/17 Range/Units 03:48 03:49 05:00 WBC (4.5-11.0) K/uL RBC (4.30-5.90) M/uL Hgb (12.0-15.0) g/dL Hct (40.0-54.0) % MCV (80-98) fL MCH (27-31) pg MCHC (32-36) % Plt Count (150-400) K/uL Neut % (Auto) (36-66) % Lymph % (Auto) (24-44) % [place] % (Auto) (2-6) % Eos % (Auto) (2-4) % Baso % (Auto) (0-1) % D-Dimer, Quantitative (0.0-400.0) ng/mL Puncture Site R radial ABG pH 7.348 L (7.350-7.450) ABG pCO2 44.5 H (35.0-42.0) mmHg ABG pO2 72.0 L (75.0-100.0) mmHg ABG HCO3 23.8 (22.0-26.0) mmol/L ABG Total CO2 22.0 L (23.0-27.0) mmol/L ABG O2 Saturation 93.7 L (95.0-98.0) % ABG O2 Content 14.3 L (15.0-23.0) %vol ABG Base Excess -1.4 mm/L ABG Hemoglobin 11.2 L (13.5-18.0) g/dL ABG Oxyhemoglobin 90.8 % ABG Carboxyhemoglobin 2.4 H (0.0-1.6) % ABG Methemoglobin 0.7 % Vernon Test Ok O2 Delivery Device Bipap Oxygen Flow Rate L Sodium (140-148) mmol/L Potassium (3.6-5.2) mmol/L Chloride (100-108) mmol/L Carbon Dioxide (21-32) mmol/L Anion Gap (5.0-14.0) mmol/L BUN (7-18) mg/dL Creatinine (0.8-1.3) mg/dL Est Cr Clr Drug Dosing mL/min Estimated GFR (MDRD) (>60) Glucose (74-106) mg/dL Lactic Acid (0.4-2.0) mmol/L Calcium (8.5-10.1) mg/dL Total Bilirubin (0.2-1.0) mg/dL AST (15-37) U/L ALT (12-78) U/L Alkaline Phosphatase (46-116) U/L Creatine Kinase (39-308) U/L Troponin I (0.000-0.056) ng/mL NT-Pro-B Natriuret Pep (5-125) pg/mL Total Protein (6.4-8.2) g/dL Albumin (3.4-5.0) g/dL Globulin (2.3-3.5) g/dL Albumin/Globulin Ratio (1.2-2.2) Lipase (73-393) U/L TSH, Ultra Sensitive (0.358-3.740) uIU/mL Urine Color Yellow Urine Appearance Clear Urine pH 5.0 (4.5-8.0) Ur Specific [place] 1.025 (1.008-1.030) Urine Protein Negative (NEGATIVE) mg/dL Urine Glucose (UA) 250 H (NEGATIVE) mg/dL Urine Ketones Negative (NEGATIVE) mg/dL Urine Occult Blood Negative (NEGATIVE) Urine Nitrite Negative (NEGAITVE) Urine Bilirubin Negative (NEGATIVE) Urine Urobilinogen Normal (NORMAL) mg/dL Ur Leukocyte Esterase Negative (NEGATIVE) Urine RBC 0-5 (0-5) Urine WBC 0-5 (0-5) Ur Epithelial Cells Rare Amorphous Sediment Few Urine Bacteria Few Urine Mucus Not seen Salicylates (2.0-20.0) mg/dL Urine Opiates Screen Negative (NEGATIVE) Ur Oxycodone Screen Positive H (NEGATIVE) Urine Methadone Screen Negative (NEGATIVE) Ur Propoxyphene Screen Negative (NEGATIVE) Acetaminophen (10.0-30.0) ug/mL Ur Barbiturates Screen Negative (NEGATIVE) Ur Tricyclics Screen Negative (NEGATIVE) Ur Phencyclidine Scrn Negative (NEGATIVE) Ur Amphetamine Screen Negative (NEGATIVE) U Methamphetamines Scrn Negative (NEGATIVE) Urine MDMA Screen Negative (NEGATIVE) U Benzodiazepines Scrn Negative (NEGATIVE) U Cocaine Metab Screen Negative (NEGATIVE) Theophylline (10-20.0) ug/mL U Marijuana (THC) Screen Negative (NEGATIVE) Ethyl Alcohol mg/dL 08/02/17 Range/Units 05:05 WBC (4.5-11.0) K/uL RBC (4.30-5.90) M/uL Hgb (12.0-15.0) g/dL Hct (40.0-54.0) % MCV (80-98) fL MCH (27-31) pg MCHC (32-36) % Plt Count (150-400) K/uL Neut % (Auto) (36-66) % Lymph % (Auto) (24-44) % [place] % (Auto) (2-6) % Eos % (Auto) (2-4) % Baso % (Auto) (0-1) % D-Dimer, Quantitative 3540 H (0.0-400.0) ng/mL Puncture Site ABG pH (7.350-7.450) ABG pCO2 (35.0-42.0) mmHg ABG pO2 (75.0-100.0) mmHg ABG HCO3 (22.0-26.0) mmol/L ABG Total CO2 (23.0-27.0) mmol/L ABG O2 Saturation (95.0-98.0) % ABG O2 Content (15.0-23.0) %vol ABG Base Excess mm/L ABG Hemoglobin (13.5-18.0) g/dL ABG Oxyhemoglobin % ABG Carboxyhemoglobin (0.0-1.6) % ABG Methemoglobin % Vernon Test O2 Delivery Device Oxygen Flow Rate L Sodium (140-148) mmol/L Potassium (3.6-5.2) mmol/L Chloride (100-108) mmol/L Carbon Dioxide (21-32) mmol/L Anion Gap (5.0-14.0) mmol/L BUN (7-18) mg/dL Creatinine (0.8-1.3) mg/dL Est Cr Clr Drug Dosing mL/min Estimated GFR (MDRD) (>60) Glucose (74-106) mg/dL Lactic Acid (0.4-2.0) mmol/L Calcium (8.5-10.1) mg/dL Total Bilirubin (0.2-1.0) mg/dL AST (15-37) U/L ALT (12-78) U/L Alkaline Phosphatase (46-116) U/L Creatine Kinase (39-308) U/L Troponin I (0.000-0.056) ng/mL NT-Pro-B Natriuret Pep (5-125) pg/mL Total Protein (6.4-8.2) g/dL Albumin (3.4-5.0) g/dL Globulin (2.3-3.5) g/dL Albumin/Globulin Ratio (1.2-2.2) Lipase (73-393) U/L TSH, Ultra Sensitive (0.358-3.740) uIU/mL Urine Color Urine Appearance Urine pH (4.5-8.0) Ur Specific [place] (1.008-1.030) Urine Protein (NEGATIVE) mg/dL Urine Glucose (UA) (NEGATIVE) mg/dL Urine Ketones (NEGATIVE) mg/dL Urine Occult Blood (NEGATIVE) Urine Nitrite (NEGAITVE) Urine Bilirubin (NEGATIVE) Urine Urobilinogen (NORMAL) mg/dL Ur Leukocyte Esterase (NEGATIVE) Urine RBC (0-5) Urine WBC (0-5) Ur Epithelial Cells Amorphous Sediment Urine Bacteria Urine Mucus Salicylates (2.0-20.0) mg/dL Urine Opiates Screen (NEGATIVE) Ur Oxycodone Screen (NEGATIVE) Urine Methadone Screen (NEGATIVE) Ur Propoxyphene Screen (NEGATIVE) Acetaminophen (10.0-30.0) ug/mL Ur Barbiturates Screen (NEGATIVE) Ur Tricyclics Screen (NEGATIVE) Ur Phencyclidine Scrn (NEGATIVE) Ur Amphetamine Screen (NEGATIVE) U Methamphetamines Scrn (NEGATIVE) Urine MDMA Screen (NEGATIVE) U Benzodiazepines Scrn (NEGATIVE) U Cocaine Metab Screen (NEGATIVE) Theophylline (10-20.0) ug/mL U Marijuana (THC) Screen (NEGATIVE) Ethyl Alcohol mg/dL Result Diagrams: 08/02/17 03:20 08/02/17 03:20 *Q Meaningful Use (ADM) - VTE *Q VTE Criteria *Q: - VTE Risk Assess *Q Each Risk Factor Represents 1 Point: History of prior major surgery less than 1 month, Obesity ( BMI > 25 kg/m2), Congestive heart failure (CHF), Abnormal Pulmonary Function (COPD) Total Score 1 Point Risk Factors: 4 Each Risk Factor Represents 2 Points: Age 60 - 74 Years Total Score 2 Point Risk Factors: 2 Each Risk Factor Represents 3 Points: None Total Score 3 Point Risk Factors: 0 Each Risk Factor Represents 5 Points: None Total Score 5 Point Risk Factors: 0 Venous Thromboembolism Risk Factor Score *Q: 6 - Stroke *Q Stroke Criteria *Q: - AMI *Q AMI Criteria *Q: Problem List Initiated/Reviewed/Updated: Yes Orders Last 24hrs: Active Orders 24 hr Category Date Time Status Patient Status Manage Transfer [TRANSFER] Routine ADT 08/02/17 08:30 Ordered Cardiac Monitoring [RC] .As Directed Care 08/02/17 03:07 Active EKG Documentation Completion [RC] ASDIRECTED Care 08/02/17 03:09 Active Baez Catheter Insertion [Insert Urinary Catheter] [OM. Care 08/02/17 03:45 Ordered PC] Q24H Peripheral IV Care [RC] . DIRECTED Care 08/02/17 03:08 Active RT BiPAP/CPAP [RC] ASDIRECTED Care 08/02/17 03:10 Active Urinary Catheter Assessment [RC] ASDIRECTED Care 08/02/17 03:39 Active Ang Chest [CT] Stat Exams 08/02/17 05:39 Taken Chest 1V Frontal [CR] Stat Exams 08/02/17 03:09 Taken Echo Comp wo Cont [US] Stat Exams 08/02/17 08:05 Ordered Head wo Cont [CT] Stat Exams 08/02/17 03:47 Taken Dextrose 50% in Water Med 08/02/17 08:46 Active 50 ml IVPUSH ASDIRECTED PRN Dextrose [Glutose 15] Med 08/02/17 08:46 Active 15 gm PO ASDIRECTED PRN Glucagon,Human Recombinant [GlucaGen] Med 08/02/17 08:46 Active 1 mg IM ASDIRECTED PRN Insulin Lispro [HumaLOG] Med 08/02/17 08:48 Active 0 unit SUBCUT QID PRN Sodium Chloride 0.9% [Saline Flush] Med 08/02/17 03:07 Active 10 ml FLUSH ASDIRECTED PRN Peripheral IV Insertion Adult [OM.PC] Stat Oth 08/02/17 03:07 Ordered Resuscitation Status Routine Resus Stat 08/02/17 08:35 Ordered EKG 12 Lead [EK] Stat Ther 08/02/17 03:09 Ordered Medication Orders Dextrose (Glutose 15) 15 gm PO ASDIRECTED PRN PRN Reason: HYPOGLYCEMIA Dextrose/Water (Dextrose 50% In Water) 50 ml IVPUSH ASDIRECTED PRN PRN Reason: HYPOGLYCEMIA Glucagon (Glucagen) 1 mg IM ASDIRECTED PRN PRN Reason: HYPOGLYCEMIA Insulin Human Lispro (Humalog) 0 unit SUBCUT QID PRN; Protocol PRN Reason: MEDIUM CORRECTIONAL DOSING Sodium Chloride (Saline Flush) 10 ml FLUSH ASDIRECTED PRN PRN Reason: Keep Vein Open Last Admin: 10/17/17 05:24 Dose: 10 ml Assessment/Plan Comment:: ASSESSMENT AND PLAN CONGESTIVE HEART PCIBRYF-[id number] history of coronary artery disease with previous myocardial infarctions. On evaluation today found to have pulmonary edema is the likely cause of his significant respiratory compromise. Recent symptoms of shortness of breath, peripheral edema, and orthopnea. -IV Lasix twice daily -Echocardiogram to assess left ventricular function -2 g sodium diet -Consider addition of FLORENTINO inhibitor to current medical regimen HYPOXIC RESPIRATORY FAILURE-likely secondary to pulmonary edema as well as known underlying COPD. -Management of CHF as above -Supplemental oxygen as needed -Noninvasive positive pressure ventilation [id number]-[id number] and related to smoking history. Does not appear to have acute exacerbation or underlying pulmonary infection -Continue outpatient medical regimen CORONARY ARTERY DISEASE-status post coronary artery bypass surgery done 20 years ago, he is also had one angioplasty with stent placement. Currently asymptomatic, troponin is within normal range. -Continue outpatient medical regimen STATUS POST TOTAL LEFT HIP ARTHROPLASTY-done approximately 2 weeks ago -Physical therapy consult -Continue outpatient pain medication regimen TYPE 2 DIABETES MELLITUS -Continue metformin -Continue long-acting insulin -Moderate dose sliding scale Humalog -4 times a day glucometers MAINTENANCE ISSUES -DVT prophylaxis; Lovenox 40 mg subcutaneous daily -GI prophylaxis; not indicated -Baez catheter; placed for management of urine output with diuresis -Nutrition; 2 g sodium, consistent carbohydrate -Nicotine dependence; not required CODE STATUS-FULL CODE ADMISSION STATUS-patient will be admitted to inpatient status, expect at least a 2 night hospital stay for evaluation and management of problems as outlined above. At the time of this admission I do not reasonably expected evaluation and management of this problem will require more than a 96 hour hospital stay. DISPOSITION-anticipate discharge to home after the hospital stay. PRIMARY CARE PROVIDER-
[2017-08-02] MEDS ORDERED: Magnesium Hydroxide 400 MG/5 ML Susp 30 ML Cup PO PRN (09:21)
[2017-08-02] MEDS ORDERED: oxyCODONE 5 MG Tab PO PRN (09:21)
[2017-08-02] MEDS ORDERED: Albuterol 0.083% 2.5 MG/3 ML Neb Soln NEB PRN (09:21)
[2017-08-02] MEDS ORDERED: Polyethylene Glycol 3350 Powder 17 GM Packet PO PRN (09:21)
[2017-08-02] MEDS ORDERED: 50% Dextrose in Water 50 ML Syringe IV PRN (09:21)
[2017-08-02] MEDS ORDERED: Nitroglycerin 0.4 MG Tab.SL SL PRN (09:21)
[2017-08-02] MEDS ORDERED: Non-Formulary Medication 1 Each (Sertraline Hcl [Zoloft] 200 MG) PO SCH (09:21)
[2017-08-02] MEDS ORDERED: Ondansetron 4 MG/2 ML SDV IV PRN (09:21)
[2017-08-02] MEDS ORDERED: Acetaminophen 325 MG Tab PO PRN (09:21)
[2017-08-02] MEDS ORDERED: Albuterol/Ipratropium 3.0-0.5 MG/3 ML Neb Soln NEB PRN (09:21)
--- NOTE | 2017-08-02 09:44 | CR ---
Portable chest There is cardiac enlargement. There is vascular engorgement. There are increased interstitial marking s in the lower lung booker. There are no significant effusions. There are no focal alveolar consolida tions. Impression: 1. CHF with evidence of mild interstitial edema.
[2017-08-02] MEDS ORDERED: RANEXA 1000 MG PO SCH (11:00)
[2017-08-02] MEDS: Aspirin 325 MG Tab.EC PO SCH (11:03)
[2017-08-02] MEDS: Enoxaparin 40 MG/0.4 ML Syringe SUBCUT SCH (11:04)
[2017-08-02] MEDS: Magnesium Oxide 400 MG Tab PO SCH (11:05)
[2017-08-02] MEDS: Gabapentin 300 MG Cap PO SCH ×3 (11:05→20:42)
[2017-08-02] MEDS: Isosorbide Mononitrate 30 MG Tab.ER PO SCH ×2 (11:06→16:50)
[2017-08-02] MEDS: Sertraline 50 MG Tab PO SCH ×2 (11:07→20:39)
[2017-08-02] MEDS: Insulin Detemir 100 Units/ML 3 ML Pen SUBCUT SCH ×2 (11:11→20:50)
[2017-08-02] MEDS: metFORMIN 500 MG Tab PO SCH (16:50)
[2017-08-02] MEDS: Insulin Lispro 100 Units/ML 3 ML Vial SUBCUT PRN ×2 (16:51→20:50)
[2017-08-02] MEDS: Furosemide 20 MG/2 ML VIAL IVPUSH SCH (18:05)
[2017-08-02] MEDS: Metoprolol Succinate 50 MG Tab.ER PO SCH (20:39)
[2017-08-02] MEDS: atorvaSTATin 20 MG Tab PO SCH (20:41)
[2017-08-02] MEDS: amLODIPine 5 MG Tab PO SCH (20:41)
[2017-08-02] MEDS: traZODone 50 MG Tab PO SCH (20:42)
[2017-08-03] MEDS: Furosemide 20 MG/2 ML VIAL IVPUSH SCH (06:21)
[2017-08-03] MEDS: Isosorbide Mononitrate 30 MG Tab.ER PO SCH ×2 (07:49→16:19)
[2017-08-03] MEDS: Levothyroxine 75 MCG Tab PO SCH (07:50)
[2017-08-03] MEDS: metFORMIN 500 MG Tab PO SCH ×2 (07:51→16:21)
[2017-08-03] MEDS: Aspirin 325 MG Tab.EC PO SCH (08:21)
[2017-08-03] MEDS: Enoxaparin 40 MG/0.4 ML Syringe SUBCUT SCH (08:21)
[2017-08-03] MEDS: Magnesium Oxide 400 MG Tab PO SCH ×4 (08:22→21:16)
[2017-08-03] MEDS: Gabapentin 300 MG Cap PO SCH ×3 (08:22→21:16)
[2017-08-03] MEDS: Sertraline 50 MG Tab PO SCH ×2 (08:23→21:18)
[2017-08-03] MEDS: Insulin Detemir 100 Units/ML 3 ML Pen SUBCUT SCH ×2 (08:24→21:27)
[2017-08-03] MEDS ORDERED: Potassium Chloride 20 MEQ Tab.ER PO ONE (09:00)
[2017-08-03] MEDS: Magnesium Sulfate/Water 2 GM in Premix Bag 1 BAG IV SCH ×2 (09:05→16:18)
--- NOTE | 2017-08-03 09:46 | PCM.PN ---
- General Info Date of Service: 08/03/17 Functional Status: Reports: Tolerating Diet, Ambulating - Review of Systems General: Denies: Fever, Weakness, Chills Pulmonary: Reports: Shortness of Breath. Denies: Pleuritic Chest Pain, Cough, Sputum, Hemoptysis, Wheezing Cardiovascular: Reports: Dyspnea on Exertion, Edema. Denies: Chest Pain, Palpitations, Orthopnea, PND Gastrointestinal: Reports: No Symptoms Systems Review Comment:: Mr. Macias has improved since admission with less shortness of breath, currently off of noninvasive positive pressure ventilation and on supplemental oxygen via nasal cannula. Vital signs are been stable and he has remained afebrile. Excellent diuresis since admission with IV furosemide. Echocardiogram showed mildly decreased left ventricular function with mild aortic stenosis. - Patient Data Vitals - Most Recent: Last Vital Signs Temp 98.8 F 08/03/17 07:00 Pulse 60 08/03/17 08:33 Resp 20 08/03/17 08:33 BP 122/52 L 08/03/17 08:33 Pulse Ox 93 L 08/03/17 08:38 Weight - Most Recent: 237 lb 11.2 oz I&O - Last 24 Hours: Intake & Output 08/02/17 08/03/17 08/03/17 22:59 06:59 14:59 Intake Total 120 440 500 Output Total 250 2200 Balance -130 -1760 500 Lab Results Last 24 Hours: Laboratory Results - last 24 hr 08/03/17 Range/Units 05:33 Sodium 143 (140-148) mmol/L Potassium 3.4 L (3.6-5.2) mmol/L Chloride 107 (100-108) mmol/L Carbon Dioxide 28 (21-32) mmol/L Anion Gap 11.4 (5.0-14.0) mmol/L BUN 15 (7-18) mg/dL Creatinine 0.8 (0.8-1.3) mg/dL Est Cr Clr Drug Dosing 95.04 mL/min Estimated GFR (MDRD) > 60 (>60) Glucose 93 (74-106) mg/dL Calcium 8.8 (8.5-10.1) mg/dL Magnesium 1.5 L (1.8-2.4) mg/dL Med Orders - Current: Current Medications Acetaminophen (Tylenol) 650 mg PO Q4H PRN PRN Reason: Pain (Mild 1-3)/fever Albuterol (Proventil Neb Soln) 2.5 mg NEB Q4H PRN PRN Reason: Shortness Of Breath/wheezing Albuterol/Ipratropium (Duoneb 3.0-0.5 Mg/3 Ml) 3 ml NEB QID PRN PRN Reason: Shortness Of Breath/wheezing Amlodipine Besylate (Norvasc) 5 mg PO BEDTIME [facility] Last Admin: 08/02/17 20:41 Dose: 5 mg Aspirin (Ecotrin) 325 mg PO DAILY [facility] Last Admin: 08/03/17 08:21 Dose: 325 mg Atorvastatin Calcium (Lipitor) 40 mg PO BEDTIME [facility] Last Admin: 08/02/17 20:41 Dose: 40 mg Dextrose (Glutose 15) 15 gm PO ONETIME PRN PRN Reason: Hypoglycemia Dextrose/Water (Dextrose 50% In Water) 50 ml IV ONETIME PRN PRN Reason: Hypoglycemia Enoxaparin Sodium (Lovenox) 40 mg SUBCUT DAILY [facility] Last Admin: 08/03/17 08:21 Dose: 40 mg Furosemide (Lasix) 20 mg PO DAILY [facility] Gabapentin (Neurontin) 300 mg PO DAILY [facility] Last Admin: 08/03/17 08:22 Dose: 300 mg Gabapentin (Neurontin) 900 mg PO BEDTIME [facility] Last Admin: 08/02/17 20:42 Dose: 900 mg Gabapentin (Neurontin) 600 mg PO DAILY@1400 [facility] Last Admin: 08/02/17 13:24 Dose: 600 mg Glucagon (Glucagen) 1 mg IM ASDIRECTED PRN PRN Reason: HYPOGLYCEMIA Magnesium Sulfate 2 gm/ Premix 50 mls @ 25 mls/hr IV Q6H [facility] Stop: 08/03/17 17:59 Last Admin: 08/03/17 09:05 Dose: 25 mls/hr Potassium Chloride 20 meq/Lidocaine HCl 2 ml/ Sodium Chloride 112 mls @ 56 mls/ hr IV Q2H [facility] Stop: 08/03/17 13:59 Insulin Detemir (Levemir) 62 unit SUBCUT BID [facility] Last Admin: 08/03/17 08:24 Dose: 62 units Insulin Human Lispro (Humalog) 0 unit SUBCUT QID PRN; Protocol PRN Reason: MEDIUM CORRECTIONAL DOSING Last Admin: 08/02/17 20:50 Dose: 2 units Isosorbide Mononitrate (Imdur) 60 mg PO BID@0730,1630 [facility] Last Admin: 08/03/17 07:49 Dose: 60 mg Levothyroxine Sodium (Levothyroxine) 150 mcg PO ACBREAKFAST [facility] Last Admin: 08/03/17 07:50 Dose: 150 mcg Lisinopril (Prinivil) 5 mg PO DAILY [facility] Magnesium Hydroxide (Milk Of Magnesia) 30 ml PO Q12H PRN PRN Reason: Constipation Magnesium Oxide (Magnesium Oxide) 200 mg PO DAILY [facility] Last Admin: 08/03/17 08:51 Dose: 400 mg Magnesium Oxide (Magnesium Oxide) 400 mg PO BID [facility] Last Admin: 08/03/17 08:51 Dose: 400 mg Metformin HCl (Glucophage) 1,000 mg PO BIDMEALS [facility] Last Admin: 08/03/17 07:51 Dose: 1,000 mg Metoprolol Succinate (Toprol Xl) 100 mg PO BEDTIME [facility] Last Admin: 08/02/17 20:39 Dose: 100 mg Nitroglycerin (Nitrostat) 0.4 mg SL ASDIRECTED PRN PRN Reason: Chest Pain Ondansetron HCl (Zofran) 4 mg IV Q4H PRN PRN Reason: Nausea/Vomiting Oxycodone HCl (Oxycodone) 1 - 2 mg PO Q3H PRN PRN Reason: Pain Polyethylene Glycol (Miralax) 17 gm PO DAILY PRN PRN Reason: Constipation Ranolazine (Ranexa) 1,000 mg PO BID [facility] Last Admin: 08/03/17 08:23 Dose: 1,000 mg Senna/Docusate Sodium (Senna Plus) 1 tab PO BID [facility] Last Admin: 08/03/17 08:23 Dose: 1 tab Sertraline HCl (Zoloft) 100 mg PO BID [facility] Last Admin: 08/03/17 08:23 Dose: 100 mg Sodium Chloride (Saline Flush) 10 ml FLUSH ASDIRECTED PRN PRN Reason: Keep Vein Open Last Admin: 08/03/17 06:22 Dose: 10 ml Trazodone HCl (Trazodone) 50 mg PO BEDTIME [facility] Last Admin: 08/02/17 20:42 Dose: 50 mg Discontinued Medications Dextrose (Glutose 15) 15 gm PO ASDIRECTED PRN PRN Reason: HYPOGLYCEMIA Dextrose/Water (Dextrose 50% In Water) 50 ml IVPUSH ASDIRECTED PRN PRN Reason: HYPOGLYCEMIA Furosemide (Lasix) 80 mg IVPUSH ONETIME ONE Stop: 08/02/17 06:52 Last Admin: 08/02/17 07:00 Dose: 80 mg Furosemide (Lasix) 20 mg IVPUSH Q12H [facility] Last Admin: 08/03/17 06:21 Dose: 20 mg Sodium Chloride (Normal Saline) 1,000 mls @ 125 mls/hr IV ASDIRECTED JAIDA Last Admin: 08/02/17 04:19 Dose: 125 mls/hr Sodium Chloride (Normal Saline) 100 mls @ 4 mls/sec IV ASDIRECTED STA Stop: 08/02/17 05:53 Last Admin: 08/02/17 09:54 Dose: Not Given Iopamidol (Isovue-370 (76%)) 100 ml IV . DIRECTED STA Stop: 08/02/17 05:53 Last Admin: 08/02/17 06:21 Dose: 100 ml Lidocaine HCl (Xylocaine 2% Jelly) 10 ml MUCMEM ONETIME ONE Stop: 08/02/17 03:40 Last Admin: 08/02/17 04:18 Dose: 10 ml Lidocaine HCl (Xylocaine 2% Jelly) Confirm Administered Dose 10 ml .ROUTE .STK- MED ONE Stop: 08/02/17 03:40 Last Admin: 08/02/17 04:18 Dose: Not Given Non-Formulary Medication (Sertraline Hcl [Zoloft]) 200 mg PO BID [facility] Last Admin: 08/02/17 11:42 Dose: Not Given Ranexa 1000mg *Nf* 1 each PO BID [facility] Last Admin: 08/02/17 11:08 Dose: Not Given Potassium Chloride (Klor-Con M20) 40 meq PO ONETIME ONE Stop: 08/03/17 09:01 Last Admin: 08/03/17 08:50 Dose: 40 meq Sodium Chloride (Saline Flush) 10 ml FLUSH ASDIRECTED PRN PRN Reason: Keep Vein Open Last Admin: 08/02/17 05:24 Dose: 10 ml - Exam Quality Assessment: Supplemental Oxygen, Urine Catheter General: Alert, Oriented, Cooperative, No Acute Distress Lungs: Clear to Auscultation, Normal Respiratory Effort Cardiovascular: Regular Rate, Regular Rhythm, Murmurs GI/Abdominal Exam: Normal Bowel Sounds, Soft, Non-Tender, No Distention Extremities: Non-Tender, Pedal Edema Skin: Warm, Dry, Intact - Problem List Review Problem List Initiated/Reviewed/Updated: Yes - My Orders Last 24 Hours: My Active Orders 08/02/17 08:46 Glucagon,Human Recombinant [GlucaGen] 1 mg IM ASDIRECTED PRN 08/02/17 08:48 Insulin Lispro [HumaLOG] 0 unit SUBCUT QID PRN 08/02/17 09:21 Patient Status [ADT] Routine Ambulate [RC] QID Blood Glucose Check, Bedside [RC] QIDACANDBED Cardiac Monitoring [RC] .As Directed Communication Order [RC] ASDIRECTED Diabetes Education [RC] Click to Edit Diabetes Education [RC] Click to Edit Intake and Output [RC] QSHIFT Notify Provider Vital Signs [RC] ASDIRECTED Notify Provider [RC] PRN Oxygen Therapy [RC] PRN RT Aerosol Therapy [RC] ASDIRECTED Up With Assistance [RC] ASDIRECTED Up to Chair [RC] QID VTE/DVT Education [RC] Per Unit Routine Vital Signs [RC] Q2H PT Evaluation and Treatment [CONS] Routine Acetaminophen [Tylenol] 650 mg PO Q4H PRN Albuterol [Proventil Neb Soln] 2.5 mg NEB Q4H PRN Albuterol/Ipratropium [DuoNeb 3.0-0.5 MG/3 ML] 3 ml NEB QID PRN Dextrose 50% in Water 50 ml IV ONETIME PRN Dextrose [Glutose 15] 15 gm PO ONETIME PRN Magnesium Hydroxide [Milk of Magnesia] 30 ml PO Q12H PRN Ondansetron [Zofran] 4 mg IV Q4H PRN Polyethylene Glycol 3350 [MiraLAX] 17 gm PO DAILY PRN Sodium Chloride 0.9% [Saline Flush] 10 ml FLUSH ASDIRECTED PRN Saline Lock Insert [OM.PC] Routine 08/02/17 10:00 Enoxaparin [Lovenox] 40 mg SUBCUT DAILY 08/02/17 14:00 Ranolazine [Ranexa] 1,000 mg PO BID 08/03/17 09:00 Magnesium Oxide 400 mg PO BID 08/03/17 09:32 Remove Baez Catheter [Urinary Catheter Removal] [RC] Per Unit Routine 08/03/17 09:45 Lisinopril [Prinivil] 5 mg PO DAILY 08/03/17 10:00 Magnesium Sulfate/Water [Magnesium Sulfate 2 GM in Water 50 ML] 2 gm Premix Bag 1 bag IV Q6H Potassium Chloride 20 meq Lidocaine 1% [Xylocaine 1%] 2 ml Sodium Chloride 0.9 % [Normal Saline] 100 ml IV Q2H 08/04/17 05:00 BASIC METABOLIC PANEL,BMP [CHEM] Timed MAGNESIUM [CHEM] Timed 08/04/17 07:30 GLUCOSE POC LAB TO COLLECT [POC] QIDACANDBED 08/04/17 09:00 Furosemide [Lasix] 20 mg PO DAILY 08/04/17 11:30 GLUCOSE POC LAB TO COLLECT [POC] QIDACANDBED 08/04/17 16:30 GLUCOSE POC LAB TO COLLECT [POC] QIDACANDBED 08/04/17 21:00 GLUCOSE POC LAB TO COLLECT [POC] QIDACANDBED 08/05/17 07:30 GLUCOSE POC LAB TO COLLECT [POC] QIDACANDBED 08/05/17 11:30 GLUCOSE POC LAB TO COLLECT [POC] QIDACANDBED 08/05/17 16:30 GLUCOSE POC LAB TO COLLECT [POC] QIDACANDBED 08/05/17 21:00 GLUCOSE POC LAB TO COLLECT [POC] QIDACANDBED 08/06/17 07:30 GLUCOSE POC LAB TO COLLECT [POC] QIDACANDBED 08/06/17 11:30 GLUCOSE POC LAB TO COLLECT [POC] QIDACANDBED 08/06/17 16:30 GLUCOSE POC LAB TO COLLECT [POC] QIDACANDBED 08/06/17 21:00 GLUCOSE POC LAB TO COLLECT [POC] QIDACANDBED 08/07/17 07:30 GLUCOSE POC LAB TO COLLECT [POC] QIDACANDBED 08/07/17 11:30 GLUCOSE POC LAB TO COLLECT [POC] QIDACANDBED 08/07/17 16:30 GLUCOSE POC LAB TO COLLECT [POC] QIDACANDBED 08/07/17 21:00 GLUCOSE POC LAB TO COLLECT [POC] QIDACANDBED 08/08/17 07:30 GLUCOSE POC LAB TO COLLECT [POC] QIDACANDBED 08/08/17 11:30 GLUCOSE POC LAB TO COLLECT [POC] QIDACANDBED 08/08/17 16:30 GLUCOSE POC LAB TO COLLECT [POC] QIDACANDBED 08/08/17 21:00 GLUCOSE POC LAB TO COLLECT [POC] QIDACANDBED 08/09/17 07:30 GLUCOSE POC LAB TO COLLECT [POC] QIDACANDBED 08/09/17 11:30 GLUCOSE POC LAB TO COLLECT [POC] QIDACANDBED 08/09/17 16:30 GLUCOSE POC LAB TO COLLECT [POC] QIDACANDBED 08/09/17 21:00 GLUCOSE POC LAB TO COLLECT [POC] QIDACANDBED 08/10/17 07:30 GLUCOSE POC LAB TO COLLECT [POC] QIDACANDBED 08/10/17 11:30 GLUCOSE POC LAB TO COLLECT [POC] QIDACANDBED 08/10/17 16:30 GLUCOSE POC LAB TO COLLECT [POC] QIDACANDBED 08/10/17 21:00 GLUCOSE POC LAB TO COLLECT [POC] QIDACANDBED 08/11/17 07:30 GLUCOSE POC LAB TO COLLECT [POC] QIDACANDBED 08/11/17 11:30 GLUCOSE POC LAB TO COLLECT [POC] QIDACANDBED 08/11/17 16:30 GLUCOSE POC LAB TO COLLECT [POC] QIDACANDBED 08/11/17 21:00 GLUCOSE POC LAB TO COLLECT [POC] QIDACANDBED 08/12/17 07:30 GLUCOSE POC LAB TO COLLECT [POC] QIDACANDBED 08/12/17 11:30 GLUCOSE POC LAB TO COLLECT [POC] QIDACANDBED 08/12/17 16:30 GLUCOSE POC LAB TO COLLECT [POC] QIDACANDBED 08/12/17 21:00 GLUCOSE POC LAB TO COLLECT [POC] QIDACANDBED 08/13/17 07:30 GLUCOSE POC LAB TO COLLECT [POC] QIDACANDBED - Plan Plan:: ASSESSMENT AND PLAN CONGESTIVE HEART [id number] history of coronary artery disease with previous myocardial infarctions. On evaluation today found to have pulmonary edema is the likely cause of his significant respiratory compromise. Recent symptoms of shortness of breath, peripheral edema, and orthopnea. Echocardiogram shows mildly decreased left ventricular function with mild aortic stenosis -Lasix 20 mg by mouth daily -2 g sodium diet -Lisinopril 5 mg by mouth daily HYPOXIC RESPIRATORY FAILURE-likely secondary to pulmonary edema as well as known underlying COPD. -Management of CHF as above -Supplemental oxygen as needed [id number] and related to smoking history. Does not appear to have acute exacerbation or underlying pulmonary infection -Continue outpatient medical regimen CORONARY ARTERY DISEASE-status post coronary artery bypass surgery done 20 years ago, he is also had one angioplasty with stent placement. Currently asymptomatic, troponin is within normal range. -Continue outpatient medical regimen STATUS POST TOTAL LEFT HIP ARTHROPLASTY-done approximately 2 weeks ago -Physical therapy consult -Continue outpatient pain medication regimen TYPE 2 DIABETES MELLITUS -Continue metformin -Continue long-acting insulin -Moderate dose sliding scale Humalog -4 times a day glucometers MAINTENANCE ISSUES -DVT prophylaxis; Lovenox 40 mg subcutaneous daily -GI prophylaxis; not indicated -Baez catheter; placed for management of urine output with diuresis -Nutrition; 2 g sodium, consistent carbohydrate -Nicotine dependence; not required CODE STATUS-FULL CODE ADMISSION STATUS-patient will be admitted to inpatient status, expect at least a 2 night hospital stay for evaluation and management of problems as outlined above. At the time of this admission I do not reasonably expected evaluation and management of this problem will require more than a 96 hour hospital stay. DISPOSITION-anticipate discharge to home after the hospital stay. PRIMARY CARE PROVIDER-[facility], [facility]
[2017-08-03] MEDS: Potassium Chloride 20 MEQ, Lidocaine 1% 2 ML in Sodium Chloride 0.9% 100 ML IV SCH ×2 (10:29→12:23)
[2017-08-03] MEDS: Lisinopril 5 MG Tab PO SCH (10:31)
[2017-08-03] MEDS: Insulin Lispro 100 Units/ML 3 ML Vial SUBCUT PRN ×3 (10:54→21:28)
[2017-08-03] MEDS: atorvaSTATin 20 MG Tab PO SCH (21:16)
[2017-08-03] MEDS: Metoprolol Succinate 50 MG Tab.ER PO SCH (21:17)
[2017-08-03] MEDS: amLODIPine 5 MG Tab PO SCH (21:17)
[2017-08-03] MEDS: traZODone 50 MG Tab PO SCH (21:18)
[2017-08-04] MEDS: metFORMIN 500 MG Tab PO SCH (08:18)
[2017-08-04] MEDS: Levothyroxine 75 MCG Tab PO SCH (08:18)
[2017-08-04] MEDS: Isosorbide Mononitrate 30 MG Tab.ER PO SCH (08:19)
[2017-08-04] MEDS: Magnesium Oxide 400 MG Tab PO SCH ×2 (08:19→08:20)
[2017-08-04] MEDS: Aspirin 325 MG Tab.EC PO SCH (08:20)
[2017-08-04] MEDS: Lisinopril 5 MG Tab PO SCH (08:21)
[2017-08-04] MEDS: Enoxaparin 40 MG/0.4 ML Syringe SUBCUT SCH (08:21)
[2017-08-04] MEDS: Sertraline 50 MG Tab PO SCH (08:21)
[2017-08-04] MEDS: Insulin Detemir 100 Units/ML 3 ML Pen SUBCUT SCH (08:22)
[2017-08-04] MEDS ORDERED: Furosemide 20 MG Tab PO SCH (09:00)
[2017-08-04] MEDS ORDERED: Magnesium Sulfate/Water 2 GM in Premix Bag 1 BAG IV ONE (09:00)
--- NOTE | 2017-08-04 09:27 | PCM.DCSUM1 ---
Discharge Summary - Hospital Course Brief History: Mr. Macias is a 66-year-old gentleman who was admitted through the emergency department with hypoxia and decreased level of consciousness secondary to congestive heart failure. - Discharge Data Discharge Date: 08/04/17 Discharge Disposition: Home, W Home Health Agency 06 Condition: Fair - Discharge Diagnosis/Problem(s) (1) CHF (congestive heart failure) SNOMED Code(s): 20382681 ICD Code: I50.9 - HEART FAILURE, UNSPECIFIED Status: Acute Current Visit : Yes (2) Hypoxia SNOMED Code(s): 648949537 ICD Code: R09.02 - HYPOXEMIA Status: Acute Current Visit: Yes (3) Diabetes mellitus SNOMED Code(s): 46597755 ICD Code: E11.9 - TYPE 2 DIABETES MELLITUS WITHOUT COMPLICATIONS Status: Chronic Current Visit: No (4) CAD (coronary artery disease) SNOMED Code(s): 58556848 ICD Code: I25.10 - ATHSCL HEART DISEASE OF [place] CORONARY ARTERY W/O ANG PCTRS Status: Chronic Current Visit: No - Patient Summary/Data Consults: Consultations 08/02/17 09:21 PT Evaluation and Treatment [CONS] Routine Please Evaluate and Treat. PT Reason for Consult: Recent left hip arthroplasty This query below is only for informational purposes and is not editable. Hospital Course: Mr. Macias is a 66-year-old gentleman with a history of multiple medical problems including coronary artery disease and type 2 diabetes mellitus. He developed symptoms of increased shortness of breath over the past week prior to admission. On the evening of admission was noted to be lethargic with decreased level of consciousness. Ambulance was called and he was brought into the emergency department for further evaluation. On initial assessment by EMS as well as in the emergency department was noted to have hypoxia. Chest x-ray showed no obvious infiltrates. CT scan of the chest with PE protocol was obtained showing no evidence of pulmonary emboli or infiltrates but did document pulmonary edema. On admission he was treated with supplemental oxygen as well as noninvasive positive pressure ventilation. He was given IV diuretic therapy in the emergency department and diuresed well. By the following morning he did improve significantly but still required supplemental oxygen. Echocardiogram was obtained which showed mildly decreased left ventricular function, concentric left ventricular hypertrophy, and mild aortic stenosis. His potassium and magnesium levels were found to be low when he was given IV and oral potassium and magnesium supplementation. He was started on oral diuretic therapy with furosemide 20 mg by mouth daily as well as supplemental potassium 20 mEq daily and lisinopril 5 mg by mouth daily. He had persistent hypoxia despite diuresis and will be discharged home on home oxygen 2 L/m via nasal cannula. He has known documented sleep apnea but has been unable to tolerate home C Pap or BiPAP. Records will be copied including images of x-ray studies for review by his care providers at the [facility]. Follow-up appointment will be scheduled with his primary care provider at the [facility] as well as with his escrow clerk. Activity will be as tolerated and he is encouraged to follow a strict 2 g sodium diet as well as consistent carbohydrate diet. - Patient Instructions Diet: Usual Diet as Tolerated Activity: As Tolerated Other/Special Instructions: [facility] Resume home care as previously provided prior to admission. Follow-up with primary care at the [facility] within 1 week. Follow-up with his escrow clerk at the [facility] in [place]. - Discharge Plan Prescriptions/Med Rec: Furosemide [Lasix] 20 mg PO DAILY #30 tablet Lisinopril [Prinivil] 5 mg PO DAILY #30 tablet Potassium Chloride 20 meq PO DAILY #30 tablet.er Home Medications: Home Meds Albuterol [IJD: Albuterol HFA] 1 puff .XX QID PRN 08/02/17 [History] Aspirin [Ecotrin] 325 mg PO DAILY 08/02/17 [History] Cholecalciferol (Vitamin D3) [Vitamin D3] 1,000 unit PO DAILY 08/02/17 [History] Cyanocobalamin (Vitamin B12) [Vitamin B12] 1,000 mcg PO DAILY 08/02/17 [History] Cyclobenzaprine HCl 5 - 10 mg PO TID PRN 08/02/17 [History] Gabapentin [Neurontin] 300 mg PO DAILY 08/02/17 [History] Gabapentin [Neurontin] 600 mg PO DAILY 08/02/17 [History] Gabapentin [Neurontin] 900 mg PO BEDTIME 08/02/17 [History] Insulin Glarg,Human.Rec.Analog [Lantus Solostar] 62 unit SUBCUT BID 08/02/17 [ History] Isosorbide Mononitrate [Imdur] 60 mg PO BID 08/02/17 [History] Levothyroxine 150 mcg PO ACBREAKFAST 08/02/17 [History] Loratadine 10 mg PO DAILY PRN 08/02/17 [History] Magnesium Oxide 250 mg PO DAILY 08/02/17 [History] Meclizine [Antivert] 25 mg PO TID PRN 08/02/17 [History] Metoprolol Succinate [Toprol XL] 100 mg PO BEDTIME 08/02/17 [History] Nitroglycerin [Nitrostat] 0.4 mg SL ASDIRECTED PRN 08/02/17 [History] Ranolazine [Ranexa] 1,000 mg PO BID 08/02/17 [History] Sennosides/Docusate Sodium [Senna-Docusate Sodium] 1 - 2 each PO BID 08/02/17 [ History] Sertraline HCl [Zoloft] 100 mg PO BID 08/02/17 [History] Vitamin B Complex [Ultra B-100 Complex] 1 each PO DAILY 08/02/17 [History] amLODIPine Besylate [Amlodipine Besylate] 5 mg PO BEDTIME 08/02/17 [History] atorvaSTATin Calcium [Atorvastatin Calcium] 40 mg PO BEDTIME 08/02/17 [History] metFORMIN [Glucophage] 1,000 mg PO BIDMEALS 08/02/17 [History] oxyCODONE 1 - 2 tab PO Q3H PRN 08/02/17 [History] traZODone HCl [Trazodone HCl] 50 mg PO BEDTIME 08/02/17 [History] Furosemide [Lasix] 20 mg PO DAILY #30 tablet 08/04/17 [Rx] Lisinopril [Prinivil] 5 mg PO DAILY #30 tablet 08/04/17 [Rx] Potassium Chloride 20 meq PO DAILY #30 tablet.er 08/04/17 [Rx] Forms: ED Department Discharge, Take Home DC Nutrition Plan Referrals: PCP,None [Primary Care Provider] - - Patient Data Vitals - Most Recent: Last Vital Signs Temp 98.9 F 08/04/17 08:51 Pulse 59 L 08/04/17 08:51 Resp 22 H 08/04/17 08:51 BP 150/49 H 08/04/17 08:51 Pulse Ox 96 08/04/17 08:51 Weight - Most Recent: 236 lb 8 oz I&O - Last 24 hours: Intake & Output 08/03/17 08/04/17 08/04/17 22:59 06:59 14:59 Intake Total 300 Output Total 125 1075 Balance 175 -1075 Lab Results - Last 24 hrs: Laboratory Results - last 24 hr 08/04/17 Range/Units 05:14 Sodium 141 (140-148) mmol/L Potassium 3.8 (3.6-5.2) mmol/L Chloride 107 (100-108) mmol/L Carbon Dioxide 27 (21-32) mmol/L Anion Gap 7.3 (5.0-14.0) mmol/L BUN 13 (7-18) mg/dL Creatinine 0.8 (0.8-1.3) mg/dL Est Cr Clr Drug Dosing 98.35 mL/min Estimated GFR (MDRD) > 60 (>60) Glucose 119 H (74-106) mg/dL Calcium 9.3 (8.5-10.1) mg/dL Magnesium 1.7 L (1.8-2.4) mg/dL Med Orders - Current: Current Medications Acetaminophen (Tylenol) 650 mg PO Q4H PRN PRN Reason: Pain (Mild 1-3)/fever Albuterol (Proventil Neb Soln) 2.5 mg NEB Q4H PRN PRN Reason: Shortness Of Breath/wheezing Albuterol/Ipratropium (Duoneb 3.0-0.5 Mg/3 Ml) 3 ml NEB QID PRN PRN Reason: Shortness Of Breath/wheezing Amlodipine Besylate (Norvasc) 5 mg PO BEDTIME [facility] Last Admin: 08/03/17 21:17 Dose: 5 mg Aspirin (Ecotrin) 325 mg PO DAILY [facility] Last Admin: 08/04/17 08:20 Dose: 325 mg Atorvastatin Calcium (Lipitor) 40 mg PO BEDTIME [facility] Last Admin: 08/03/17 21:16 Dose: 40 mg Dextrose (Glutose 15) 15 gm PO ONETIME PRN PRN Reason: Hypoglycemia Dextrose/Water (Dextrose 50% In Water) 50 ml IV ONETIME PRN PRN Reason: Hypoglycemia Enoxaparin Sodium (Lovenox) 40 mg SUBCUT DAILY [facility] Last Admin: 08/04/17 08:21 Dose: 40 mg Furosemide (Lasix) 20 mg PO DAILY [facility] Last Admin: 10/19/17 08:20 Dose: 20 mg Gabapentin (Neurontin) 300 mg PO DAILY [facility] Last Admin: 08/03/17 08:22 Dose: 300 mg Gabapentin (Neurontin) 900 mg PO BEDTIME [facility] Last Admin: 08/03/17 21:16 Dose: 900 mg Gabapentin (Neurontin) 600 mg PO DAILY@1400 [facility] Last Admin: 08/03/17 13:18 Dose: 600 mg Glucagon (Glucagen) 1 mg IM ASDIRECTED PRN PRN Reason: HYPOGLYCEMIA Magnesium Sulfate 2 gm/ Premix 50 mls @ 25 mls/hr IV ONETIME ONE Stop: 08/04/17 10:59 Last Admin: 08/04/17 08:25 Dose: 25 mls/hr Insulin Detemir (Levemir) 62 unit SUBCUT BID [facility] Last Admin: 08/04/17 08:22 Dose: 62 units Insulin Human Lispro (Humalog) 0 unit SUBCUT QID PRN; Protocol PRN Reason: MEDIUM CORRECTIONAL DOSING Last Admin: 08/03/17 21:28 Dose: 3 units Isosorbide Mononitrate (Imdur) 60 mg PO BID@0730,1630 [facility] Last Admin: 08/04/17 08:19 Dose: 60 mg Levothyroxine Sodium (Levothyroxine) 150 mcg PO ACBREAKFAST [facility] Last Admin: 08/04/17 08:18 Dose: 150 mcg Lisinopril (Prinivil) 5 mg PO DAILY [facility] Last Admin: 08/04/17 08:21 Dose: 5 mg Magnesium Hydroxide (Milk Of Magnesia) 30 ml PO Q12H PRN PRN Reason: Constipation Magnesium Oxide (Magnesium Oxide) 200 mg PO DAILY [facility] Last Admin: 08/04/17 08:19 Dose: 200 mg Magnesium Oxide (Magnesium Oxide) 400 mg PO BID [facility] Last Admin: 08/04/17 08:20 Dose: 400 mg Metformin HCl (Glucophage) 1,000 mg PO BIDMEALS [facility] Last Admin: 08/04/17 08:18 Dose: 1,000 mg Metoprolol Succinate (Toprol Xl) 100 mg PO BEDTIME [facility] Last Admin: 08/03/17 21:17 Dose: 100 mg Nitroglycerin (Nitrostat) 0.4 mg SL ASDIRECTED PRN PRN Reason: Chest Pain Ondansetron HCl (Zofran) 4 mg IV Q4H PRN PRN Reason: Nausea/Vomiting Oxycodone HCl (Oxycodone) 1 - 2 mg PO Q3H PRN PRN Reason: Pain Polyethylene Glycol (Miralax) 17 gm PO DAILY PRN PRN Reason: Constipation Ranolazine (Ranexa) 1,000 mg PO BID [facility] Last Admin: 08/04/17 08:20 Dose: 1,000 mg Senna/Docusate Sodium (Senna Plus) 1 tab PO BID [facility] Last Admin: 08/04/17 08:20 Dose: 1 tab Sertraline HCl (Zoloft) 100 mg PO BID [facility] Last Admin: 08/04/17 08:21 Dose: 100 mg Sodium Chloride (Saline Flush) 10 ml FLUSH ASDIRECTED PRN PRN Reason: Keep Vein Open Last Admin: 08/03/17 06:22 Dose: 10 ml Trazodone HCl (Trazodone) 50 mg PO BEDTIME [facility] Last Admin: 08/03/17 21:18 Dose: 50 mg Discontinued Medications Dextrose (Glutose 15) 15 gm PO ASDIRECTED PRN PRN Reason: HYPOGLYCEMIA Dextrose/Water (Dextrose 50% In Water) 50 ml IVPUSH ASDIRECTED PRN PRN Reason: HYPOGLYCEMIA Furosemide (Lasix) 80 mg IVPUSH ONETIME ONE Stop: 08/02/17 06:52 Last Admin: 08/02/17 07:00 Dose: 80 mg Furosemide (Lasix) 20 mg IVPUSH Q12H [facility] Last Admin: 08/03/17 06:21 Dose: 20 mg Sodium Chloride (Normal Saline) 1,000 mls @ 125 mls/hr IV ASDIRECTED JAIDA Last Admin: 08/02/17 04:19 Dose: 125 mls/hr Sodium Chloride (Normal Saline) 100 mls @ 4 mls/sec IV ASDIRECTED STA Stop: 08/02/17 05:53 Last Admin: 08/02/17 09:54 Dose: Not Given Magnesium Sulfate 2 gm/ Premix 50 mls @ 25 mls/hr IV Q6H JAIDA Stop: 08/03/17 17:59 Last Admin: 08/03/17 16:18 Dose: 25 mls/hr Potassium Chloride 20 meq/Lidocaine HCl 2 ml/ Sodium Chloride 112 mls @ 56 mls/ hr IV Q2H JAIDA Stop: 08/03/17 13:59 Last Admin: 08/03/17 12:23 Dose: 56 mls/hr Iopamidol (Isovue-370 (76%)) 100 ml IV . DIRECTED STA Stop: 08/02/17 05:53 Last Admin: 08/02/17 06:21 Dose: 100 ml Lidocaine HCl (Xylocaine 2% Jelly) 10 ml MUCMEM ONETIME ONE Stop: 08/02/17 03:40 Last Admin: 08/02/17 04:18 Dose: 10 ml Lidocaine HCl (Xylocaine 2% Jelly) Confirm Administered Dose 10 ml .ROUTE .STK- MED ONE Stop: 08/02/17 03:40 Last Admin: 08/02/17 04:18 Dose: Not Given Non-Formulary Medication (Sertraline Hcl [Zoloft]) 200 mg PO BID [facility] Last Admin: 08/02/17 11:42 Dose: Not Given Ranexa 1000mg *Nf* 1 each PO BID [facility] Last Admin: 08/02/17 11:08 Dose: Not Given Potassium Chloride (Klor-Con M20) 40 meq PO ONETIME ONE Stop: 08/03/17 09:01 Last Admin: 08/03/17 08:50 Dose: 40 meq Sodium Chloride (Saline Flush) 10 ml FLUSH ASDIRECTED PRN PRN Reason: Keep Vein Open Last Admin: 08/02/17 05:24 Dose: 10 ml *Q Meaningful Use (DIS) - VTE *Q VTE Criteria *Q: - Stroke *Q Stroke Criteria *Q: - AMI *Q AMI Criteria *Q:
--- NOTE | 2017-08-05 07:48 | ECHO ---
PATY PRACTITIONER: 1. AO ROOT: 3.89. (NL = 2.0-3.7) 2. AORTIC VALVE EXCURSION: 3. LA: 4.77 CM (NL = 1.9-4.0) 4. RV: 4.02. (NL = .09-2.6) 5. LV LAYNE: 5.42. (NL = 3.5-5.7) 6. LV SYST: 4.15. (NL = 2.2-4.3) 7. FRACTIONAL SHORTENING: (2542) 8. EJECTION FRACTION: 45% to 50%. (5075) 9. IVS: 1.2 (NL = 0.6-1.1) 10. LVPW: 1.5 (NL = 0.6 1.1) INDICATION: Pulmonary edema. By 2D echo, left ventricular function appears to be mildly decreased consistent with estimated ejection fraction of 45% to 50%. There is mild global hypokinesis as well as concentric left ventricular hypertrophy. There is no pericardial effusion seen on this study. There is left atrial enlargement as well as right ventricular enlargement with preserved right ventricular function. Other chambers are within normal range for size when corrected for body surface area. There is calcification of the aortic valve leaflets and annulus with impairment of leaflet motion. There is calcification of the mitral valve annulus. The tricuspid and pulmonic valves are structurally normal in appearance. By Doppler and color Doppler, there is evidence of mild aortic stenosis with a peak velocity of 2.65 meters/sec, a peak pressure gradient of 28 mmHg with a mean gradient of 17 mmHg, and a calculated valve area of 1.5 cm2. There is mild tricuspid regurgitation, trace MR and AI. IMPRESSION: 1. Study is of poor technical quality limiting available information and compromising interpretation. 2. Mildly decreased left ventricular function. Estimated ejection fraction of 45% to 50%. 3. Mild global left ventricular hypokinesis. 4. Mild concentric left ventricular hypertrophy. 5. Left atrial enlargement. 6. Right ventricular enlargement with preserved right ventricular function. 7. Mild aortic stenosis as described above. 8. Mild tricuspid regurgitation. 9. Trace mitral regurgitation and aortic insufficiency. /[id number] NICKY
== END 2017-08-04 11:11 | disposition home health service (06) | DRG 291 ==
LOC: JP.ED 03:00 → JP.ICU 08:30
PROVIDERS: ADMIT Hospitalist; ATTEND Hospitalist
DX: I11.0 Hypertensive heart disease with heart failure (principal); J96.91 Respiratory failure, unspecified with hypoxia; I50.9 Heart failure, unspecified; J44.9 Chronic obstructive pulmonary disease, unspecified; F17.210 Nicotine dependence, cigarettes, uncomplicated; E11.40 Type 2 diabetes mellitus with diabetic neuropathy, unspecified; Z79.4 Long term (current) use of insulin; I25.10 Atherosclerotic heart disease of native coronary artery without angina pectoris; I25.2 Old myocardial infarction; Z95.1 Presence of aortocoronary bypass graft; M19.90 Unspecified osteoarthritis, unspecified site; F32.9 Major depressive disorder, single episode, unspecified; Z95.5 Presence of coronary angioplasty implant and graft; I35.0 Nonrheumatic aortic (valve) stenosis; G47.30 Sleep apnea, unspecified; Z99.81 Dependence on supplemental oxygen; Z96.642 Presence of left artificial hip joint; Z79.82 Long term (current) use of aspirin; Z88.5 Allergy status to narcotic agent; Z88.2 Allergy status to sulfonamides; Z88.8 Allergy status to other drugs, medicaments and biological substances; E87.6 Hypokalemia; E83.42 Hypomagnesemia
CPT/HCPCS: 36415; 36600; 70450; 71010; 71010-26; 71275; 80048; 80053; 80198; 80305; 81001; 82550; 82803; 82962; 83605; 83690; 83735; 83880; 84443; 84484; 85025; 85379; 93005; 93010; 93306; 93306-26; 94660; 96361; 96374; 97162-GP; 99223; 99232; 99238; 99284; 99285-25; A9270-GY; G0480; J1650; J1940; J3475; J3480; J7030; J7040; J7050; Q9967